=== PATIENT | male | born 1950 | race Caucasian/White ===

== ENCOUNTER 2020-03-15 09:16 | Outpatient (REF) | payer MEDICARE, OTHER, SELFPAY ==
--- NOTE | 2020-03-15 09:22 | XR_ITS ---
EXAMINATION: XR HIP, LEFT CLINICAL INFORMATION: Left hip COMPARISON: Fluoroscopic spot views left hip 01/21/2020, radiographs pelvis and left hip 01/20/2020. TECHNIQUE: AP view pelvis is performed along with AP and frog-lateral projections left hip. FINDINGS: There is been prior nailing left hip fracture. The hardware is intact. There is impaction at the prior fracture site. Fracture lines no longer clearly visible. There is bony exostosis at lateral femoral neck which may related to prior fracture fragment from the femoral neck fracture or from the adjacent to greater trochanter. There is no interval hip joint narrowing. The bony pelvis and right hip are stable. XR/XR hip LT min 2V IMPRESSION: 1. Prior nailing left hip fracture. Hardware intact. Fracture lines no longer clearly visible. 2. Foreshortening/impacted left femoral neck with exostosis lateral side femoral neck, possibly related to prior fracture fragment from the femoral neck or adjacent to greater trochanter.
== END 2020-03-15 09:17 | disposition home or self-care (01) ==
LOC: HO.XRAY 09:16
PROVIDERS: Visit Provider Physician Assistant
DX: S72.002D Fracture of unspecified part of neck of left femur, subsequent encounter for closed fracture with routine healing (principal)
CPT/HCPCS: 73502; 99212

== ENCOUNTER 2020-04-25 09:00 | Outpatient (REF) | payer MEDICARE, OTHER, SELFPAY ==
--- NOTE | 2020-04-25 09:01 | XR_ITS ---
EXAMINATION: AP PELVIS AND CROSSTABLE LATERAL LEFT HIP CLINICAL INFORMATION: Left hip pain. Status post fracture. COMPARISON: 03/15/2020 and 03/12/2020 TECHNIQUE: AP pelvis and cross table lateral view left hip. FINDINGS: There are again noted to be 3 pins across a subcapital fracture of the proximal right femur. No significant change in appearance identified. There is no evidence of acute fracture or diastases of the pelvis. Hip joint spaces appear maintained. No significant sacroiliac joint abnormality is noted. There is a region of sclerosis seen involving the medial aspect of the left iliac bone adjacent to the sacroiliac joint which was present on previous examination of 03/15/2020. XR/XR hip LT 1V IMPRESSION: Stable appearance status post pinning of left hip subcapital fracture. Sclerotic nondestructive lesion involving the left iliac bone.
--- NOTE | 2020-04-25 09:01 | XR_ITS ---
EXAMINATION: AP PELVIS AND CROSSTABLE LATERAL LEFT HIP CLINICAL INFORMATION: Left hip pain. Status post fracture. COMPARISON: 03/15/2020 and 03/12/2020 TECHNIQUE: AP pelvis and cross table lateral view left hip. FINDINGS: There are again noted to be 3 pins across a subcapital fracture of the proximal right femur. No significant change in appearance identified. There is no evidence of acute fracture or diastases of the pelvis. Hip joint spaces appear maintained. No significant sacroiliac joint abnormality is noted. There is a region of sclerosis seen involving the medial aspect of the left iliac bone adjacent to the sacroiliac joint which was present on previous examination of 03/15/2020. XR/XR pelvis 1-2V IMPRESSION: Stable appearance status post pinning of left hip subcapital fracture. Sclerotic nondestructive lesion involving the left iliac bone.
== END 2020-04-25 09:01 | disposition home or self-care (01) ==
LOC: HO.HOSX 09:00
PROVIDERS: Visit Provider Orthopaedic Surgery
DX: S72.002D Fracture of unspecified part of neck of left femur, subsequent encounter for closed fracture with routine healing (principal); Z98.890 Other specified postprocedural states
CPT/HCPCS: 72170; 73501; 73502; 99212

== ENCOUNTER → 2020-06-24 11:46 | Outpatient (BNVA) | payer MEDICARE, OTHER, SELFPAY | PROVIDERS: PCP Internal Medicine; Visit Provider Orthopaedic Surgery ==

== ENCOUNTER → 2020-06-27 12:40 | Outpatient (BNVA) | payer MEDICARE, OTHER, SELFPAY | PROVIDERS: PCP Internal Medicine; Visit Provider Physician Assistant | DX: Z01.818 Encounter for other preprocedural examination (principal); S72.002P Fracture of unspecified part of neck of left femur, subsequent encounter for closed fracture with malunion | CPT/HCPCS: 99212 ==

== ENCOUNTER 2020-07-02 06:05 | Inpatient (IN) | payer MEDICARE, OTHER, SELFPAY ==
--- NOTE | 2020-06-20 | ECG_ITS ---
Test Reason : PREOP Blood Pressure : / mmHG Vent. Rate : 085 BPM Atrial Rate : 085 BPM P-R Int : 152 ms QRS Dur : 090 ms QT Int : 372 ms P-R-T Axes : 070 015 022 degrees QTc Int : 442 ms Normal sinus rhythm Nonspecific ST abnormality Abnormal ECG When compared with ECG of 20-JAN-2020 19:35, Nonspecific T wave abnormality no longer evident in Lateral leads Referred By: Hayden Santoyo Electronically Signed By:Zhao Young
[2020-06-20 11:59] VITALS: BP 133/77; PULSE 106; RESP 20; O2SAT 97; BMI 28.7
--- NOTE | 2020-06-20 12:15 | P.CONAN_ITS ---
Documented by User: Melanie Trinh 07/01/20 10:14 HPI - Anesthesia Eval Consult details Narrative: 69yo M for L SHARAN and L hardware removal PMFSH Past Medical History Medical History High cholesterol Hypertension Functional capacity: uses cane/walker Family History Family history of problems with anesthesia: No Surgical History Surgical History History of tonsillectomy Status post hip surgery History of Problems with Anesthesia: No Social History Social History Are you a primary home care music therapist to a significant other at home: No Do you presently have visiting nurse or other home services: No Smoking Status: Current every day smoker Packs Per Day: 0.25 Cigarettes Per Day: 5.0 Years Smoked: 50 Smoked in Last 30 Days: Yes Patient Interested in Nicotine Replacement: No Patient Given Instructions on How to Stop Smoking: Yes Date Education Initiated: 06/20/20 Second Hand Smoke Exposure: No Use of substances other than those prescribed or required for medical reasons: No Have you been hit, kicked, punched, or otherwise hurt by someone within the past year? If so, by whom?: No Caodaism Healthcare Practices: jehovah's witness Advance Directives: No Advance Directives Information Provided: No Advance Directives on File: No Recently lost weight without trying: No Current occupational status: retired Current occupation: left handed Narrative Narrative: No recent illness. No CP/SOB. Amb with walker. Meds Allergies Allergy/AdvReac Type Severity Reaction Status Date / Time No Known Allergies Allergy Verified 07/02/20 06:49 [No Known Allergies*] Home Medications Medication Instructions Recorded Confirmed Type lisinopril 1 tab PO DAILY 06/19/20 06/24/20 History simvastatin 1 tab PO DAILY 06/19/20 06/24/20 History Exam Exam Date and Time: June 20, 2020 1215 Pertinent Lab Results Pertinent Lab Results: Lab Results 06/20/20 06/20/20 06/20/20 Range/Units 13:47 13:47 13:47 WBC 8.8 (4.8-10.8) X10*3/uL RBC 4.64 (4.60-5.80) X10*6/uL Hgb 13.7 L (14.0-18.0) g/dl Hct 42.8 (42-52) % MCV 92.2 (80-98) fL MCH 29.5 (27.0-33.0) pg MCHC 32.0 (31.0-36.0) g/dl RDW 14.2 (11.0-16.0) % Plt Count 309 (160-400) X10*3/uL MPV 8.9 L (9.4-12.4) fL Immature Gran % (Auto) 0.2 (0.0-0.4) % Neut % (Auto) 56.9 (45-73) % Lymph % (Auto) 31.1 (20-40) % [place] % (Auto) 8.9 (2-11) % Eos % (Auto) 2.6 (0-4) % Baso % (Auto) 0.3 (0-2) % Lymph # (Auto) 2.7 (1.2-4.9) X10*3/uL [place] # (Auto) 0.8 (0.1-1.2) X10*3/uL Eos # (Auto) 0.2 (0.0-0.4) X10*3/uL Baso # (Auto) 0.0 (0.0-0.2) X10*3/uL Abs Immat Gran (auto) 0.02 (0.00-0.03) X10*3/uL Absolute Neuts (auto) 5.0 (2.0-8.3) X10*3/uL Absolute Nucleated RBC 0.000 (0.0-0.012) X10*3/uL Nucleated RBC % (auto) 0.0 (0.0-0.2) /100WBC Sodium 141 (135-145) mmol/L Potassium 4.6 (3.3-5.1) mmol/l Chloride 104 (96-108) mmol/L Carbon Dioxide 27 (22-29) mmol/L Anion Gap 15 (12-20) BUN 13 (9-16) mg/dL Creatinine 0.81 (0.5-1.4) mg/dL Estim Creat Clear Calc 97.4 Estimated GFR > 60 Nasal Screen MRSA (PCR) (Negative) Nasal S. aureus Screen (Negative) Nasal MRSA/S.aureus Interp Blood Type O Positive Antibody Screen NEGATIVE 06/20/20 Range/Units Unknown WBC (4.8-10.8) X10*3/uL RBC (4.60-5.80) X10*6/uL Hgb (14.0-18.0) g/dl Hct (42-52) % MCV (80-98) fL MCH (27.0-33.0) pg MCHC (31.0-36.0) g/dl RDW (11.0-16.0) % Plt Count (160-400) X10*3/uL MPV (9.4-12.4) fL Immature Gran % (Auto) (0.0-0.4) % Neut % (Auto) (45-73) % Lymph % (Auto) (20-40) % [place] % (Auto) (2-11) % Eos % (Auto) (0-4) % Baso % (Auto) (0-2) % Lymph # (Auto) (1.2-4.9) X10*3/uL [place] # (Auto) (0.1-1.2) X10*3/uL Eos # (Auto) (0.0-0.4) X10*3/uL Baso # (Auto) (0.0-0.2) X10*3/uL Abs Immat Gran (auto) (0.00-0.03) X10*3/uL Absolute Neuts (auto) (2.0-8.3) X10*3/uL Absolute Nucleated RBC (0.0-0.012) X10*3/uL Nucleated RBC % (auto) (0.0-0.2) /100WBC Sodium (135-145) mmol/L Potassium (3.3-5.1) mmol/l Chloride (96-108) mmol/L Carbon Dioxide (22-29) mmol/L Anion Gap (12-20) BUN (9-16) mg/dL Creatinine (0.5-1.4) mg/dL Estim Creat Clear Calc Estimated GFR Nasal Screen MRSA (PCR) NEGATIVE (Negative) Nasal S. aureus Screen NEGATIVE (Negative) Nasal MRSA/S.aureus Interp SEE NOTE Blood Type Antibody Screen Narrative Narrative: EKG 06/20/20 Normal sinus rhythm Nonspecific ST abnormality Abnormal ECG When compared with ECG of 20-JAN-2020 19:35, Nonspecific T wave abnormality no longer evident in Lateral leads Airway TM Dist: >3cm Neck ROM: Full Loose/Missing/Broken Teeth: Yes (Broken R upper molar, ) Heart: Tachy, regular rate Lungs: CTAB Assessment and Plan Assessment Anesthesia Assessment: Anesthesia Plan Discussed, Smoking Cess. Discussed and PAT Visit Documented by User: Jordy Jaramillo MD 07/02/20 08:26 PMFSH Past Medical History Medical History High cholesterol Hypertension Surgical History Surgical History History of tonsillectomy Status post hip surgery Social History Social History Are you a primary home care music therapist to a significant other at home: No Do you presently have visiting nurse or other home services: No Smoking Status: Current every day smoker Packs Per Day: 0.25 Cigarettes Per Day: 5.0 Years Smoked: 50 Smoked in Last 30 Days: Yes Patient Interested in Nicotine Replacement: No Patient Given Instructions on How to Stop Smoking: Yes Date Education Initiated: 06/20/20 Second Hand Smoke Exposure: No Use of substances other than those prescribed or required for medical reasons: No Have you been hit, kicked, punched, or otherwise hurt by someone within the past year? If so, by whom?: No Caodaism Healthcare Practices: jehovah's witness Advance Directives: No Advance Directives Information Provided: No Advance Directives on File: No Recently lost weight without trying: No Current occupational status: retired Current occupation: left handed Meds Allergies Allergy/AdvReac Type Severity Reaction Status Date / Time No Known Allergies Allergy Verified 07/02/20 06:49 [No Known Allergies*] Home Medications Medication Instructions Recorded Confirmed Type lisinopril 1 tab PO DAILY 06/19/20 06/24/20 History simvastatin 1 tab PO DAILY 06/19/20 06/24/20 History Assessment and Plan Assessment Anesthesia Assessment: Anesthesia Plan Discussed and Chart Reviewed Final Anesthetic Review NPO: Yes ASA Class: III Final Preanesthetic Review: No Changes in Pt Med Stat, Meds/Allgs Chart Reviewed, Consent Obtained/Reviewed and Anes Risks/Benef Reviewed Patient Risk: Intermediate Procedure Risk: Intermediate Anesthetic Plan Anesthetic Plan: GA and Regional Block Disposition: Standard PACU
[2020-06-20 14:12] LABS: MRSA Nasal PCR NEGATIVE (Negative); SA Nasal PCR NEGATIVE (Negative)
[2020-06-20 14:18] LABS: MANUAL DIFF FLAG NO
[2020-06-20 14:34] LABS: Basophils Percent Auto 0.3 % (0-2); Eosinophils Absolute Auto 0.2 X10*3/uL (0.0-0.4); Eosinophils Percent Auto 2.6 % (0-4); Hematocrit 42.8 % (42-52); Hemoglobin 13.7 g/dl (14.0-18.0); Imm Gran Abs Auto 0.02 X10*3/uL (0.00-0.03); Imm Gran Pct Auto 0.2 % (0.0-0.4); Lymphocytes Absolute Auto 2.7 X10*3/uL (1.2-4.9); Lymphocytes Percent Auto 31.1 % (20-40); Mean Corpuscular Hemoglobin 29.5 pg (27.0-33.0); Mean Corpuscular Volume 92.2 fL (80-98); Mean Platelet Volume 8.9 fL (9.4-12.4); Monocytes Absolute Auto 0.8 X10*3/uL (0.1-1.2); Monocytes Percent Auto 8.9 % (2-11); Neutrophils Percent Auto 56.9 % (45-73); Platelet Count 309 X10*3/uL (160-400); Red Blood Count 4.64 X10*6/uL (4.60-5.80); Red Cell Distribution Width 14.2 % (11.0-16.0); White Blood Count 8.8 X10*3/uL (4.8-10.8)
[2020-06-20 14:55] LABS: Anion Gap 15 (12-20); Blood Urea Nitrogen 13 mg/dL (9-16); Carbon Dioxide 27 mmol/L (22-29); Chloride 104 mmol/L (96-108); Creatinine Clr Calc Pharmacy 97.4; Estimated Glomerular Filt Rate > 60; Potassium 4.6 mmol/l (3.3-5.1); Sodium 141 mmol/L (135-145)
--- NOTE | 2020-06-25 15:19 | HP_ITS ---
DATE OF SERVICE: 07/02/2020 HISTORY OF PRESENT ILLNESS: The patient is a 69-year-old male, who was seen in the office for preop evaluation and general medical checkup on 06/24/2020. The patient previously has been followed by Dr. Adan. The patient is scheduled for left total hip replacement on July 02 at [facility]. PAST MEDICAL HISTORY: Significant for fractured left hip with pinning last December, and A 8 years old, fractured right ankle in 2006, hypertension, elevated cholesterol, overweight. REVIEW OF SYSTEMS: No fevers or chills. No headaches or dizziness. No chest pains or shortness of breath. No peripheral edema. No palpitations. No coughing. No wheezing. No heartburn or abdominal pain. No dysuria. He does have to get up once at night. He has arthritis in the knees. No speech changes. No confusion. Sleep and appetite are normal. He does have seasonal allergies. No skin rashes. FAMILY HISTORY: Mother at 88. Father at 82. He has 2 brothers and 1 sister in good health. He has 1 son in good health. SOCIAL HISTORY: He is . He smokes 5 or 6 cigarettes a day. Has 1 to 2 alcoholic drinks every other day. He is retired. IMMUNIZATIONS: He was given a pneumonia vaccine; Pneumovax 23 today. He has had a previous flu shot at the pharmacy. PHYSICAL EXAMINATION: GENERAL: He is awake and alert, in no distress. VITAL SIGNS: Weight is 200 pounds (even), height is 5 feet 10 inches. Temperature 97.6, pulse 82, respirations 12, blood pressure 122/78. HEENT: Pupils are equal. TMs clear. Pharynx clear. NECK: Supple. No lymph nodes, bruits, or masses. HEART: Sounds S1 and S2. Regular rate and rhythm. LUNGS: Clear. ABDOMEN: Soft, nontender. Positive bowel sounds. No HSM. EXTREMITIES: No clubbing, cyanosis, or edema. 1+ pulses. He is presently using a walker because of the hip pain. ASSESSMENT AND PLAN: 1. Hypertension. Good control. 2. Elevated cholesterol. On simvastatin. 3. Tobacco abuse. Advised to quit. 4. Seasonal hay fever. [id number] medications as needed. 5. History of colon polyps. Up to date with colonoscopies. 6. He is preop for left total hip replacement for July 02. He is medically stable for the proposed procedure. Labs and EKG were reviewed. I will be available if there are any medical issues preoperatively. Tavares Gonzalez MD FC/MODL / [id number]
[2020-07-02] VITALS (18 sets, daily range): BP systolic 109–142; BP diastolic 68–88; PULSE 68–88; RESP 15–18; TEMP 36.1–37.1; O2SAT 94–100
--- NOTE | ~2020-07-02 | XR_ITS ---
EXAMINATION: XR PELVIS CLINICAL INFORMATION: Left total hip arthroplasty COMPARISON: 04/25/2020 TECHNIQUE: AP portable low set view of the pelvis. FINDINGS: There is a total left hip arthroplasty. The femoral head component articulates appropriately with the acetabular component. No periprosthetic lucency or fracture. Soft tissue gas noted. Mild degenerative change of the right hip with sclerosis. Phleboliths over the pelvis. XR/XR pelvis 1-2V IMPRESSION: Total left hip arthroplasty in typical positioning and alignment.
[2020-07-02 06:41] LABS: COVID-19 Test Negative (Negative)
[2020-07-02] MEDS: Lactated Ringers 1,000 ML 100 ML IVCONT (07:03)
[2020-07-02] MEDS: Gabapentin 600 MG TABLET PO (07:04)
[2020-07-02] MEDS: oxyCODONE HCl ER 10 MG TAB.ER.12H PO ×2 (07:04→21:09)
--- NOTE | 2020-07-02 07:23 | MHC.SHP ---
Pre-Procedural Eval Section A The patient is an INPATIENT: No Changes since office visit: Yes Patient answered all questions; No Cold of Flu in the past 2 weeks, No New Medical Problems and No Changes in Medication The History & Physical has been completed within 30 days and I have reviewed it.: Yes Section B Chief Complaint: Removal of hardware and left SHARAN Allergies: Allergies Allergy/AdvReac Type Severity Reaction Status Date / Time No Known Allergies Allergy Verified 07/02/20 06:49 [No Known Allergies*] Plan I have reviewed the history and physical and performed a pertinent physical examination on my patient. No changes have occurred unless specified.
--- NOTE | 2020-07-02 10:10 | P.BOP_ITS ---
Brief Operative Note Date of Service: 07/02/20 Pre-op diagnosis: left femoral neck malunion Post-op diagnosis: same Procedure: left SHARAN VERONIQUE left hip Implants: anna secure fit 10 with 36 + 5 ceramic head and 56 trident2 Surgeon: Jelani Diamond MD Anesthesia: GETA and regional Digital Marketing Officer: Hayden Santoyo Estimated blood loss (mL): 200 Tourniquet time (min): 0 IV fluids (mL): 1,200 Urine output (mL): 0 Pathology: other Condition: stable Disposition: PACU
[2020-07-02] MEDS: Ketorolac Tromethamine 15 MG/ML VIAL IVPUSH (10:46)
[2020-07-02] MEDS: HYDROmorphone HCl 0.5 MG/0.5 ML SYRINGE 0.25 MG IVPUSH (10:47)
[2020-07-02] MEDS: ceFAZolin Sodium/Dextrose,Iso 2 GM/50 ML PIGGYBACK IV (14:28)
[2020-07-02] MEDS: Dextrose 5 % and 0.45 % NaCl 1,000 ML 80 ML IVCONT (16:46)
[2020-07-02] MEDS: 0.9 % Sodium Chloride Flush 3 ML SYRINGE IVFLUSH (16:46)
--- NOTE | 2020-07-02 19:14 | OP_ITS ---
SURGEON: Jelani Diamond MD INDICATIONS: This is a 69-year-old gentleman, who sustained a femoral neck fracture, treated with percutaneous pinning that went on to malunion and was consented to undergo removal of hardware and total hip arthroplasty. PREOPERATIVE DIAGNOSIS: Left femoral neck malunion. POSTOPERATIVE DIAGNOSIS: PROCEDURE PERFORMED: Left hip arthroplasty and removal of hardware, left hip. ESTIMATED BLOOD LOSS: 200 mL. COMPLICATIONS: None. ANESTHESIA: General and regional. ASSISTANTS: EMILI Harrison. SPECIMENS: FLUIDS: 1200. IMPLANTS: Lizy Secur-Fit #10 with 36 plus 5 ceramic femoral head and a 56 Trident II acetabular cup. PROCEDURE IN DETAIL: The patient was brought to the operating room, placed in the right lateral decubitus position. All bony prominences were well padded and he was prepped and draped in standard sterile fashion. Time-out was called to identify proper site, proper procedure, proper surgeon. IV antibiotics per weight was administered. I began by making an incision over the prior incision, where the percutaneous screws had been placed. Blunt dissection was taken down to the tensor fascia. This was incised with a 15 blade and tissue was spread with a clamp down to the screw heads, which were removed easily without complication. I then irrigated, closed the fascia and the subcutaneous tissue and the skin with félix. I then turned my attention to the hip arthroplasty portion of the procedure. A curvilinear incision was made over the posterolateral aspect of the greater trochanter. Dissection was taken down to the tensor fascia, which was incised in line with the incision. A Charnley retractor was placed. Bursectomy was performed and the piriformis was identified, tagged, and a full-thickness piriformis capsulotomy was performed and the head was dislocated. The neck had gone to malunion with retroversion of the head. A neck cut was therefore made at anatomic neck and I used a rongeur to remove remaining pieces of bone. I then placed my anterior posterior acetabular retractors and performed a labrectomy, used Aquamantys and Bovie to remove the fovea. I then sequentially reamed up to a 55 and 56 cup was placed approximately 40 degrees of inclination and 25 degrees of anteversion. I then placed a 20-degree posterior lip liner and turned my attention to the femur. I used the NIMBOXX cutter to lateralize and then used a Secur-Fit line up to 10. I then broached up to a 10 and trialed. I was happy with the range of motion and stability, but more so . My final Secur-Fit stem was malleted in and had approximately 10 degrees of anteversion and again I re-trialed with a +5 head. I was happy with the range of motion and stability. Therefore, my final +5 head was placed. The hip was reduced and the capsule was closed with FiberWire. A 3-minute iodine soak with local TXA was applied and a layered closure with félix on the skin. X-rays revealed a symmetric leg lengths and hip arthroplasty hardware and expected postoperative position. The patient was then extubated, brought to the recovery room in stable condition. There were no known complications. MD ELBA Newell/SERGO / [id number]
[2020-07-02] MEDS: Celecoxib 200 MG CAPSULE PO (21:09)
--- NOTE | 2020-07-02 23:22 | PM.IMCN ---
History of Present Illness Data of Consult Service Date: 07/02/20 Requesting physician: Lalito Diamond Primary Care Provider: Fei Gonzalez MD [facility] Reason for consult: post-op medical management This is a 69-year-old male with past medical history of hyperlipidemia, hypertension, who was admitted by the surgical team for history of sustained a femoral neck fracture, treated with percutaneous pinning that went on to malunion and was consented to undergo removal of hardware and total hip arthroplasty. He is postop day 1, has no complaints of pain, reports no acute complaints. Has no chest pain, no shortness of breath, no headache or change in vision, no abdominal pain nausea or vomiting, no constipation. Reports that he moved his bowels this a.m. No urinary symptoms and no lower extremity edema. Medical team is consulted for postop medical management Patient hemodynamically stable at this time with no abnormal vitals Past medical history: High cholesterol, hypertension Past surgical history: Reports only the current total hip replacement Family history: Denies Social history: Comes from home, lives with his , independent, denies any tobacco alcohol or illicit drugs Review of Systems Review of Systems: Yes all other systems are reviewed and are negative [facility] Medical History (Updated 07/02/20 @ 23:26 by Mariola Jenkins MD) High cholesterol Hypertension Functional capacity: uses cane/walker Surgical History History of tonsillectomy Status post hip surgery Social History Are you a primary wound care specialist to a significant other at home: No Do you presently have visiting nurse or other home services: No Smoking Status: Current every day smoker Packs Per Day: 0.25 Cigarettes Per Day: 5.0 Years Smoked: 50 Smoked in Last 30 Days: Yes Patient Interested in Nicotine Replacement: No Patient Given Instructions on How to Stop Smoking: Yes Date Education Initiated: 06/20/20 Second Hand Smoke Exposure: No Use of substances other than those prescribed or required for medical reasons: No Currently Displaying Signs/Symptoms of Drug Intoxication Withdrawal: No Have you been hit, kicked, punched, or otherwise hurt by someone within the past year? If so, by whom?: No Protestant Healthcare Practices: taoism Advance Directives: No Advance Directives Information Provided: No Advance Directives on File: No Do you have thoughts of harming others: None Do you have a plan to hurt others: No Plan Recently lost weight without trying: No Current occupational status: retired Current occupation: left handed Meds Allergies Allergy/AdvReac Type Severity Reaction Status Date / Time No Known Allergies Allergy Verified 07/02/20 06:49 [No Known Allergies*] Active Medications: Current Medications Generic Name Dose Route Start Last Admin Trade Name Freq PRN Reason Stop Dose Admin Acetaminophen 650 mg 07/02/20 16:09 Acetaminophen 325 Mg Tablet PO Q6H PRN Pain, Mild (Pain Scale 1-3) Celecoxib 200 mg 07/02/20 21:00 07/02/20 21:09 Celecoxib 200 Mg Capsule PO 200 mg BID GREGG Administration Hydromorphone HCl 0.25 mg 07/02/20 16:09 Hydromorphone Hcl 0.5 Mg/0.5 Ml Syringe IVPUSH Q4H PRN Pain, Severe (Pain Scale 7-10) Dextrose/Sodium Chloride 1,000 mls @ 80 mls/hr 07/02/20 16:09 07/02/20 16:46 D51/2ns IVCONT 80 mls/hr .[id number] GREGG Administration Naloxone HCl 0.2 mg 07/02/20 16:09 Naloxone Hcl 0.4 Mg/Ml Vial IVPUSH Q2M PRN Excessive sedation or RR < 8 Ondansetron HCl 4 mg 07/02/20 16:09 Ondansetron Hcl 4 Mg/2 Ml Vial IVPUSH Q8H PRN Nausea and Vomiting Oxycodone HCl 10 mg 07/02/20 16:09 Oxycodone Hcl Immed Release 5 Mg Tablet PO Q4H PRN Pain, Moderate (Pain Scale 4-6 Oxycodone HCl 10 mg 07/02/20 21:00 07/02/20 21:09 Oxycodone Hcl Er 10 Mg Tab.Er.12h PO 10 mg BID GREGG Administration Senna 17.2 mg 07/02/20 16:09 Sennosides 8.6 Mg Tablet PO BEDTIME PRN Constipation Sodium Chloride 3 ml 07/02/20 16:09 07/02/20 21:55 0.9 % Sodium Chloride Flush 3 Ml Syringe IVFLUSH Not Given QSHIFT [facility] Home Medications Medication Instructions Recorded Confirmed Last Taken Type lisinopril 1 tab PO DAILY 06/19/20 06/24/20 Unknown History simvastatin 1 tab PO DAILY 06/19/20 06/24/20 Unknown History Physical Exam Vital Signs and Narrative: Vital Signs: Last Vital Signs Temp 98.7 F 07/02/20 19:21 Pulse 88 07/02/20 19:21 Resp 15 07/02/20 19:21 BP 127/78 07/02/20 19:21 Pulse Ox 98 07/02/20 19:21 Body Mass Index 28.7 Const: General: cooperative and no acute distress Orientation/consciousness: patient oriented x3 Eyes: General: appearance normal, both eyes and all related structures Resp: Effort & Inspection: normal respiratory effort and able to speak in complete sentences Cardio: Rate: regular rate Rhythm: regular rhythm GI: Palpation (GI): Soft to palpation Auscultation: normal bowel sounds Skin: General skin exam: no rashes or lesions noted Neuro: General: patient oriented x3 Cognition (Neuro): normal cognition Extrem: Other: Status post General: Yes normal to inspection and Yes no pedal edema Results Labs CBC and Chem 7: 06/20/20 13:47 06/20/20 13:47 Labs: Laboratory Results - last 24 hr 07/02/20 06:15 COVID-19 (SATINDER) Negative COVID-19 Clin Com See Note Assessment and Plan (1) Closed displaced fracture of left femoral neck with malunion: Status: Acute (2) Closed displaced fracture of left femoral neck with routine healing: Status: Acute (3) Hypertension: Status: Acute (4) High cholesterol: Status: Acute This is a 69-year-old male who sustained a femoral neck fracture status post percutaneous pinning but unfortunately went on to become malunion therefore was admitted today for total hip arthroplasty. # postop day 1 status post total left hip arthroplasty - pain well controlled - management per orthopedic team # hypertension - stable - continue lisinopril # hyperlipidemia - continue statin Thank you for this consult As patient is hemodynamically stable, with no acute medical issues, we will therefore sign off this consult If he would like this to see patient again please contact us
[2020-07-03 03:47] VITALS: BP 125/73; PULSE 100; RESP 16; TEMP 36.5; O2SAT 96
[2020-07-03] MEDS: Dextrose 5 % and 0.45 % NaCl 1,000 ML 80 ML IVCONT ×2 (03:52→16:23)
[2020-07-03 06:48] LABS: MANUAL DIFF FLAG NO
[2020-07-03 06:57] LABS: Basophils Percent Auto 0.3 % (0-2); Eosinophils Absolute Auto 0.2 X10*3/uL (0.0-0.4); Eosinophils Percent Auto 2.1 % (0-4); Hematocrit 31.2 % (42-52); Hemoglobin 10.2 g/dl (14.0-18.0); Imm Gran Abs Auto 0.04 X10*3/uL (0.00-0.03); Imm Gran Pct Auto 0.4 % (0.0-0.4); Lymphocytes Percent Auto 19.8 % (20-40); Mean Corpuscular HGB Conc 32.7 g/dl (31.0-36.0); Mean Corpuscular Hemoglobin 29.8 pg (27.0-33.0); Mean Corpuscular Volume 91.2 fL (80-98); Monocytes Absolute Auto 1.1 X10*3/uL (0.1-1.2); Monocytes Percent Auto 10.4 % (2-11); Neutrophils Absolute Auto 6.9 X10*3/uL (2.0-8.3); Platelet Count 235 X10*3/uL (160-400); Red Blood Count 3.42 X10*6/uL (4.60-5.80); White Blood Count 10.2 X10*3/uL (4.8-10.8)
[2020-07-03 07:18] LABS: Anion Gap 11 (12-20); Blood Urea Nitrogen 18 mg/dL (9-16); Calcium 7.6 mg/dL (8.4-10.2); Carbon Dioxide 26 mmol/L (22-29); Chloride 99 mmol/L (96-108); Creatinine Clr Calc Pharmacy 98.7; Estimated Glomerular Filt Rate > 60; Glucose Fasting 120 mg/dL (60-99); Potassium 4.2 mmol/L (3.3-5.1); Sodium 132 mmol/L (135-145)
--- NOTE | 2020-07-03 07:53 | PM.PNORT ---
Subjective Subjective Date of Service: 07/03/20 Principal diagnosis: LT SHARAN Interval history: POD 1 s/p removal percutaneous pinn with LT SHARAN No overnight events, resting in bed, has mild discomfort. Has not been out of bed yet. Denies sob, cp, palpitations. Physical Exam Vital Signs: Vital Signs: Last Vital Signs Temp 97.7 F 07/03/20 03:47 Pulse 100 07/03/20 03:47 Resp 16 07/03/20 03:47 BP 125/73 07/03/20 03:47 Pulse Ox 96 07/03/20 03:47 Body Mass Index 28.7 Const: General: cooperative, healthy appearing and no acute distress Resp: Effort & Inspection: normal respiratory effort and able to speak in complete sentences Cardio: Rate: regular rate Peripheral pulses: Peripheral pulses 2+ throughout GI: Palpation (GI): Soft to palpation Skin: General skin exam: no rashes or lesions noted Extrem: Other: Left hip bandage c/d/i. No erythema or edema, sensation intact. Progress Note: A&P Assessment and plan (1) History of total left hip replacement: Status: Acute Assessment and Plan: Continue pain mgmnt Begin asa for dvt ppx begin PT for LT SHARAN-posterior precautions Dispo planning-Pending PT eval, pain mgmnt Fall Risk Details Current Medications: Current Medications Generic Name Dose Route Start Last Admin Trade Name Freq PRN Reason Stop Dose Admin Acetaminophen 650 mg 07/02/20 16:09 Acetaminophen 325 Mg Tablet PO Q6H PRN Pain, Mild (Pain Scale 1-3) Celecoxib 200 mg 07/02/20 21:00 07/02/20 21:09 Celecoxib 200 Mg Capsule PO 200 mg BID GREGG Administration Hydromorphone HCl 0.25 mg 07/02/20 16:09 Hydromorphone Hcl 0.5 Mg/0.5 Ml Syringe IVPUSH Q4H PRN Pain, Severe (Pain Scale 7-10) Dextrose/Sodium Chloride 1,000 mls @ 80 mls/hr 07/02/20 16:09 07/03/20 03:52 D51/2ns IVCONT 80 mls/hr .[id number] GREGG Administration Naloxone HCl 0.2 mg 07/02/20 16:09 Naloxone Hcl 0.4 Mg/Ml Vial IVPUSH Q2M PRN Excessive sedation or RR < 8 Ondansetron HCl 4 mg 07/02/20 16:09 Ondansetron Hcl 4 Mg/2 Ml Vial IVPUSH Q8H PRN Nausea and Vomiting Oxycodone HCl 10 mg 07/02/20 16:09 Oxycodone Hcl Immed Release 5 Mg Tablet PO Q4H PRN Pain, Moderate (Pain Scale 4-6 Oxycodone HCl 10 mg 07/02/20 21:00 07/02/20 21:09 Oxycodone Hcl Er 10 Mg Tab.Er.12h PO 10 mg BID GREGG Administration Senna 17.2 mg 07/02/20 16:09 Sennosides 8.6 Mg Tablet PO BEDTIME PRN Constipation Sodium Chloride 3 ml 07/02/20 16:09 07/02/20 21:55 0.9 % Sodium Chloride Flush 3 Ml Syringe IVFLUSH Not Given QSHIFT GREGG Time Spent With Patient Time: Total time spent is greater than 50% in coordination of care (as documented) at patient's floor/unit and/or counseling patient: Time with patient: 15 - 24 minutes
[2020-07-03 08:00] VITALS: BP 115/58; PULSE 90; RESP 16; TEMP 36.3; O2SAT 98
[2020-07-03] MEDS: Celecoxib 200 MG CAPSULE PO ×2 (08:00→20:31)
[2020-07-03] MEDS: oxyCODONE HCl ER 10 MG TAB.ER.12H PO ×2 (08:00→20:32)
[2020-07-03] MEDS: Aspirin 325 MG TABLET PO ×2 (08:06→20:32)
[2020-07-03 11:35] VITALS: BP 103/63; PULSE 99; RESP 15; TEMP 36.8; O2SAT 98
--- NOTE | 2020-07-03 11:40 | MHC.CM.PN ---
met with pt who is to be dcd tomorrow pt recommends home pt referral to [facility] pt has own transportatopmn home
--- NOTE | 2020-07-03 14:37 | P.PNIM_ITS ---
Subjective Subjective Date of Service: 07/03/20 Interval History: seen in f/u for med consult Review of Systems little pain in the left hip, no fever Physical Exam Vital Signs: Vital Signs: Last Vital Signs Temp 98.3 F 07/03/20 11:35 Pulse 99 07/03/20 11:35 Resp 15 07/03/20 11:35 BP 103/63 07/03/20 11:35 Pulse Ox 98 07/03/20 11:35 Body Mass Index 28.7 Const: General: cooperative and no acute distress Yousif entation/consciousness: patient oriented x3 Eyes: General: appearance normal, both eyes and all related structures Resp: Effort & Inspection: normal respiratory effort and able to speak in complete sentences Cardio: Rate: regular rate Rhythm: regular rhythm GI: Palpation (GI): Soft to palpation Auscultation: normal bowel sounds Skin: General skin exam: no rashes or lesions noted Neuro: General: patient oriented x3 Cognition (Neuro): normal cognition Extrem: Other: Status post General: Yes normal to inspection and Yes no pedal edema Objective Data Current Medications Generic Name Dose Route Start Last Admin Trade Name Freq PRN Reason Stop Dose Admin Acetaminophen 650 mg 07/02/20 16:09 Acetaminophen 325 Mg Tablet PO Q6H PRN Pain, Mild (Pain Scale 1-3) Aspirin 325 mg 07/03/20 10:00 07/03/20 08:06 Aspirin 325 Mg Tablet PO 325 mg BID GREGG Administration Celecoxib 200 mg 07/02/20 21:00 07/03/20 08:00 Celecoxib 200 Mg Capsule PO 200 mg BID GRGEG Administration Hydromorphone HCl 0.25 mg 07/02/20 16:09 Hydromorphone Hcl 0.5 Mg/0.5 Ml Syringe IVPUSH Q4H PRN Pain, Severe (Pain Scale 7-10) Dextrose/Sodium Chloride 1,000 mls @ 80 mls/hr 07/02/20 16:09 07/03/20 03:52 D51/2ns IVCONT 80 mls/hr .[id number] GREGG Administration Naloxone HCl 0.2 mg 07/02/20 16:09 Naloxone Hcl 0.4 Mg/Ml Vial IVPUSH Q2M PRN Excessive sedation or RR < 8 Ondansetron HCl 4 mg 07/02/20 16:09 Ondansetron Hcl 4 Mg/2 Ml Vial IVPUSH Q8H PRN Nausea and Vomiting Oxycodone HCl 10 mg 07/02/20 16:09 Oxycodone Hcl Immed Release 5 Mg Tablet PO Q4H PRN Pain, Moderate (Pain Scale 4-6 Oxycodone HCl 10 mg 07/02/20 21:00 07/03/20 08:00 Oxycodone Hcl Er 10 Mg Tab.Er.12h PO 10 mg BID GRGEG Administration Senna 17.2 mg 07/02/20 16:09 Sennosides 8.6 Mg Tablet PO BEDTIME PRN Constipation Sodium Chloride 3 ml 07/02/20 16:09 07/03/20 08:00 0.9 % Sodium Chloride Flush 3 Ml Syringe IVFLUSH Not Given QSHIFT [facility] Labs CBC & Chem 7: 07/03/20 06:07 07/03/20 06:07 Assessment and Plan (1) Closed displaced fracture of left femoral neck with malunion: Status: Acute (2) Closed displaced fracture of left femoral neck with routine healing: Status: Acute (3) Hypertension: Status: Acute (4) High cholesterol: Status: Acute Assessment and Plan: This is a 69-year-old male who sustained a femoral neck fracture status post percutaneous pinning but unfortunately went on to become malunion therefore was admitted today for total hip arthroplasty. # postopstatus post total left hip arthroplasty - pain well controlled - management per orthopedic team PT/OT # hypertension - stable - continue lisinopril # hyperlipidemia - continue statin Monitor H/H
[2020-07-03 15:35] VITALS: BP 102/57; PULSE 91; RESP 18; TEMP 36.3; O2SAT 96
[2020-07-03 19:36] VITALS: BP 114/63; PULSE 90; RESP 18; TEMP 36.5; O2SAT 96
[2020-07-03 23:08] VITALS: BP 112/59; PULSE 95; RESP 20; TEMP 36.9; O2SAT 95
[2020-07-04] MEDS: 0.9 % Sodium Chloride Flush 3 ML SYRINGE IVFLUSH ×2 (00:33→08:17)
[2020-07-04 03:50] VITALS: BP 111/62; PULSE 95; RESP 20; TEMP 36.4; O2SAT 95
--- NOTE | 2020-07-04 06:38 | HO.POSTANES ---
Post Anesthesia Evaluation Post Anesthesia Evaluation Vital Signs: Vital Signs Temp Pulse Resp BP Pulse Ox 07/04/20 03:50 97.6 F 95 20 111/62 95 07/03/20 23:08 98.5 F 95 20 112/59 L 95 07/03/20 19:36 97.7 F 90 18 114/63 96 Patient seen the morning of 07/03/20 at 9am Anesthesia: Nerve Block and General Mental Status: Awake Pain Control: Satisfactory Nausea/Vomiting: None Hydration: Adequate Anesthesia-Related Issues: No Anes. Related Issues
[2020-07-04 07:10] LABS: Basophils Percent Auto 0.3 % (0-2); Eosinophils Absolute Auto 0.3 X10*3/uL (0.0-0.4); Eosinophils Percent Auto 3.4 % (0-4); Hematocrit 27.3 % (42-52); Imm Gran Abs Auto 0.04 X10*3/uL (0.00-0.03); Imm Gran Pct Auto 0.4 % (0.0-0.4); Lymphocytes Percent Auto 22.4 % (20-40); MANUAL DIFF FLAG NO; Mean Corpuscular Hemoglobin 29.6 pg (27.0-33.0); Mean Corpuscular Volume 89.8 fL (80-98); Mean Platelet Volume 8.9 fL (9.4-12.4); Monocytes Absolute Auto 0.9 X10*3/uL (0.1-1.2); Monocytes Percent Auto 9.5 % (2-11); Neutrophils Absolute Auto 5.8 X10*3/uL (2.0-8.3); Platelet Count 207 X10*3/uL (160-400); Red Blood Count 3.04 X10*6/uL (4.60-5.80); Red Cell Distribution Width 13.6 % (11.0-16.0); White Blood Count 9.1 X10*3/uL (4.8-10.8)
[2020-07-04 07:32] LABS: Anion Gap 10 (12-20); Blood Urea Nitrogen 13 mg/dL (9-16); Calcium 7.9 mg/dL (8.4-10.2); Carbon Dioxide 28 mmol/L (22-29); Chloride 100 mmol/L (96-108); Creatinine Clr Calc Pharmacy 111.2; Estimated Glomerular Filt Rate > 60; Glucose Fasting 108 mg/dL (60-99); Potassium 3.9 mmol/L (3.3-5.1); Sodium 134 mmol/L (135-145)
--- NOTE | 2020-07-04 07:32 | P.DS_ITS ---
DS: Providers Provider Date of Service: 07/04/20 Date of admission: 07/02/20 06:05 Primary care physician: Fei Gonzalez MD Consults: 07/02/20 16:09 Consult to Hospitalist Routine Consulting Provider: Hospitalist Reason For Exam: post op medical managment DS: Diagnosis Discharge Diagnosis (1) History of total left hip replacement: Status: Acute Problem details: Mr. Magallanes is a 69 yo male who was seen in our office for ongoing left hip pain s/p percutaneous pinning. He developed a non union which caused pain and interfered with therapy and ADLS; therefore, he elected to undergo removal perc. pinns with LT SHARAN . DS: Medications Discharge Medications Home Medications: Home Medications Medication Instructions Recorded Confirmed lisinopril 1 tab PO DAILY 06/19/20 06/24/20 simvastatin 1 tab PO DAILY 06/19/20 06/24/20 Previous Rx's Medication Instructions Recorded acetaminophen 650 mg PO Q6H PRN 30 Days #240 tab 07/04/20 aspirin 325 mg PO BID 30 Days #60 tab 07/04/20 celecoxib 200 mg PO BID 30 Days #60 cap 07/04/20 oxycodone 5 mg PO Q4H PRN 7 Days #42 tab 07/04/20 sennosides [Senna Lax] 17.2 mg PO BEDTIME PRN 30 Days #60 07/04/20 tab DS: Summary Hospital Course Hospital Course: The patient underwent a successful VERONIQUE with THAA, was transferred to PACU and then to the floor to recover. During their stay, their vitals were stable, afebrile at 97.6. Labs were unremarkable, H/H9.0/27.3. POD 1 he was started on ASA for DVT ppx, they also received PT and OT services twice a day. Prior to discharge, their dressing was change, incision clean dry and intact, new Aquacel dressing applied and the plan was to be discharged home with VNA services,. Time Spent with Patient Time attestation: Total time spent providing and/or coordinating discharge services: Discharge coordination time: Less than 30 minutes Physical Exam Vital Signs: Vital Signs: Last Vital Signs Temp 97.6 F 07/04/20 03:50 Pulse 95 07/04/20 03:50 Resp 20 07/04/20 03:50 BP 111/62 07/04/20 03:50 Pulse Ox 95 07/04/20 03:50 Body Mass Index 28.7 Const: General: cooperative, healthy appearing and no acute distress Resp: Effort & Inspection: normal respiratory effort and able to speak in complete sentences Cardio: Rate: regular rate Peripheral pulses: Peripheral pulses 2+ throughout GI: Palpation (GI): Soft to palpation Skin: General skin exam: no rashes or lesions noted Extrem: Other: Left hip incision c/d/i. No erythema, mild edema, sensation intact DS: Data Data Completed and Pending Pending studies at discharge: Pending at discharge 07/02/20 10:01 Surgical [PTH] Routine Labs on day of discharge: Laboratory Tests 06/20/20 06/20/20 06/20/20 13:47 13:47 13:47 WBC 8.8 RBC 4.64 Hgb 13.7 L Hct 42.8 MCV 92.2 MCH 29.5 MCHC 32.0 RDW 14.2 Plt Count 309 MPV 8.9 L Immature Gran % (Auto) 0.2 Neut % (Auto) 56.9 Lymph % (Auto) 31.1 [place] % (Auto) 8.9 Eos % (Auto) 2.6 Baso % (Auto) 0.3 Lymph # (Auto) 2.7 [place] # (Auto) 0.8 Eos # (Auto) 0.2 Baso # (Auto) 0.0 Abs Immat Gran (auto) 0.02 Absolute Neuts (auto) 5.0 Absolute Nucleated RBC 0.000 Nucleated RBC % (auto) 0.0 Sodium 141 Potassium 4.6 Chloride 104 Carbon Dioxide 27 Anion Gap 15 BUN 13 Creatinine 0.81 Estim Creat Clear Calc 97.4 Estimated GFR > 60 Fasting Glucose Calcium Nasal Screen MRSA (PCR) Nasal S. aureus Screen Nasal MRSA/S.aureus Interp COVID-19 ([facility]) COVID-19 Clin Com Blood Type O Positive Antibody Screen NEGATIVE 06/20/20 07/02/20 07/03/20 Unknown 06:15 06:07 WBC 10.2 RBC 3.42 L D Hgb 10.2 L D Hct 31.2 L D MCV 91.2 MCH 29.8 MCHC 32.7 RDW 14.0 Plt Count 235 MPV 9.0 L Immature Gran % (Auto) 0.4 Neut % (Auto) 67.0 Lymph % (Auto) 19.8 L [place] % (Auto) 10.4 Eos % (Auto) 2.1 Baso % (Auto) 0.3 Lymph # (Auto) 2.0 [place] # (Auto) 1.1 Eos # (Auto) 0.2 Baso # (Auto) 0.0 Abs Immat Gran (auto) 0.04 H Absolute Neuts (auto) 6.9 Absolute Nucleated RBC 0.000 Nucleated RBC % (auto) 0.0 Sodium Potassium Chloride Carbon Dioxide Anion Gap BUN Creatinine Estim Creat Clear Calc Estimated GFR Fasting Glucose Calcium Nasal Screen MRSA (PCR) NEGATIVE Nasal S. aureus Screen NEGATIVE Nasal MRSA/S.aureus Interp SEE NOTE COVID-19 (SATINDER) Negative COVID-19 Clin Com See Note Blood Type Antibody Screen 07/03/20 07/04/20 07/04/20 06:07 06:40 06:40 WBC 9.1 RBC 3.04 L Hgb 9.0 L Hct 27.3 L MCV 89.8 MCH 29.6 MCHC 33.0 RDW 13.6 Plt Count 207 MPV 8.9 L Immature Gran % (Auto) 0.4 Neut % (Auto) 64.0 Lymph % (Auto) 22.4 [place] % (Auto) 9.5 Eos % (Auto) 3.4 Baso % (Auto) 0.3 Lymph # (Auto) 2.0 [place] # (Auto) 0.9 Eos # (Auto) 0.3 Baso # (Auto) 0.0 Abs Immat Gran (auto) 0.04 H Absolute Neuts (auto) 5.8 Absolute Nucleated RBC 0.000 Nucleated RBC % (auto) 0.0 Sodium 132 L 134 L Potassium 4.2 3.9 Chloride 99 100 Carbon Dioxide 26 28 Anion Gap 11 L 10 L BUN 18 H 13 Creatinine 0.80 0.71 Estim Creat Clear Calc 98.7 111.2 Estimated GFR > 60 > 60 Fasting Glucose 120 H 108 H Calcium 7.6 L 7.9 L Nasal Screen MRSA (PCR) Nasal S. aureus Screen Nasal MRSA/S.aureus Interp COVID-19 ([facility]ER) COVID-19 Clin Com Blood Type Antibody Screen Discharge Plan Discharge Patient Disposition: Home Health Service Referrals: Jelani Diamond MD [Physician] - Hayden Santoyo PA-C [Physician Spreading Machine Operator] - (07/18/20 14:15) Discharge Medications: New acetaminophen 325 mg Tablet 650 mg PO Q6H PRN (Reason: Pain, Mild (Pain Scale 1-3)) 30 Days Qty: 240 RF: 0 aspirin 325 mg Tablet 325 mg PO BID 30 Days Qty: 60 RF: 0 celecoxib 200 mg Capsule 200 mg PO BID 30 Days Qty: 60 RF: 0 oxycodone 5 mg tablet 5 mg PO Q4H PRN (Reason: Pain, Moderate (Pain Scale 4-6) 7 Days Qty: 42 RF: 0 sennosides [Senna Lax] 8.6 mg Tablet 17.2 mg PO BEDTIME PRN (Reason: Constipation) 30 Days Qty: 60 RF: 0 Continued simvastatin 40 mg tablet 1 tab PO DAILY RF: 0 lisinopril 10 mg tablet 1 tab PO DAILY RF: 0 Discharge Orders: Discharge Order (Routine); Ordered 07/04/20 Ordered By: Hayden Santoyo Diet: regular diet Activity on Discharge: Use cane or walker Stand Alone Forms: Patient Portal Discharge page Activity Restrictions/Additional Instructions: * Physical Therapy for Total hip arthroplasty: posterior precautions, gait training, ROM, strength * Limit stair climbing * No showering, no tub bath-keep dressing clean, dry and intact * No driving x6 weeks * Continue Lovenox tabs once a day x 4 weeks * Follow up with [facility] in 2 weeks Care Plan Goals: Restore function of left hip Health Concerns: None Plan of Treatment: Physical Therapy Pain management DVT prophylaxis
[2020-07-04 08:00] VITALS: BP 125/66; PULSE 104; RESP 17; TEMP 36.4; O2SAT 96
[2020-07-04] MEDS: Celecoxib 200 MG CAPSULE PO (08:15)
[2020-07-04] MEDS: Aspirin 325 MG TABLET PO (08:16)
[2020-07-04] MEDS: oxyCODONE HCl ER 10 MG TAB.ER.12H PO (08:16)
--- NOTE | 2020-07-04 08:44 | MHC.CM.PN ---
PATIENT IS DISCHARGED HOME WITH [facility]. RN AWARE OF PLAN.
--- NOTE | 2020-07-04 08:47 | PM.DS ---
DS: Providers Provider Date of Service: 07/04/20 Date of admission: 07/02/20 06:05 Primary care physician: Fei Gonzalez MD Consults: 07/02/20 16:09 Consult to Hospitalist Routine Consulting Provider: Hospitalist Reason For Exam: post op medical managment DS: Diagnosis Discharge Diagnosis (1) History of total left hip replacement: Status: Acute Problem details: Mr. Magallanes is a 69 yo male who was seen in our office for ongoing left hip pain s/p percutaneous pinning. He developed a non union which caused pain and interfered with therapy and ADLS; therefore, he elected to undergo removal perc. pinns with LT SHARAN . DS: Medications Discharge Medications Home Medications: Home Medications Medication Instructions Recorded Confirmed lisinopril 1 tab PO DAILY 06/19/20 06/24/20 simvastatin 1 tab PO DAILY 06/19/20 06/24/20 Previous Rx's Medication Instructions Recorded acetaminophen 650 mg PO Q6H PRN 30 Days #240 tab 07/04/20 aspirin 325 mg PO BID 30 Days #60 tab 07/04/20 celecoxib 200 mg PO BID 30 Days #60 cap 07/04/20 oxycodone 5 mg PO Q4H PRN 7 Days #42 tab 07/04/20 sennosides [Senna Lax] 17.2 mg PO BEDTIME PRN 30 Days #60 07/04/20 tab DS: Summary Hospital Course Hospital Course: The patient underwent a successful VERONIQUE with THAA, was transferred to PACU and then to the floor to recover. During their stay, their vitals were stable, afebrile at 97.6. Labs were unremarkable, H/H9.0/27.3. POD 1 he was started on ASA for DVT ppx, they also received PT and OT services twice a day. Prior to discharge, their dressing was change, incision clean dry and intact, new Aquacel dressing applied and the plan was to be discharged home with VNA services,. Time Spent with Patient Time attestation: Total time spent providing and/or coordinating discharge services: Discharge coordination time: Less than 30 minutes Physical Exam Vital Signs: Vital Signs: Last Vital Signs Temp 97.5 F 07/04/20 08:00 Pulse 104 H 07/04/20 08:00 Resp 17 07/04/20 08:00 BP 125/66 07/04/20 08:00 Pulse Ox 96 07/04/20 08:00 Body Mass Index 28.7 Const: General: cooperative, healthy appearing and no acute distress Resp: Effort & Inspection: normal respiratory effort and able to speak in complete sentences Cardio: Rate: regular rate Peripheral pulses: Peripheral pulses 2+ throughout GI: Palpation (GI): Soft to palpation Skin: General skin exam: no rashes or lesions noted Extrem: Other: left hip incision clean dry and intact, no erythema, mild edema, sensation intact DS: Data Data Completed and Pending Pending studies at discharge: Pending at discharge 07/02/20 10:01 Surgical [PTH] Routine Labs on day of discharge: Laboratory Tests 06/20/20 06/20/20 06/20/20 13:47 13:47 13:47 WBC 8.8 RBC 4.64 Hgb 13.7 L Hct 42.8 MCV 92.2 MCH 29.5 MCHC 32.0 RDW 14.2 Plt Count 309 MPV 8.9 L Immature Gran % (Auto) 0.2 Neut % (Auto) 56.9 Lymph % (Auto) 31.1 Crook % (Auto) 8.9 Eos % (Auto) 2.6 Baso % (Auto) 0.3 Lymph # (Auto) 2.7 Crook # (Auto) 0.8 Eos # (Auto) 0.2 Baso # (Auto) 0.0 Abs Immat Gran (auto) 0.02 Absolute Neuts (auto) 5.0 Absolute Nucleated RBC 0.000 Nucleated RBC % (auto) 0.0 Sodium 141 Potassium 4.6 Chloride 104 Carbon Dioxide 27 Anion Gap 15 BUN 13 Creatinine 0.81 Estim Creat Clear Calc 97.4 Estimated GFR > 60 Fasting Glucose Calcium Nasal Screen MRSA (PCR) Nasal S. aureus Screen Nasal MRSA/S.aureus Interp COVID-19 (SATINDER) COVID-19 Clin Com Blood Type O Positive Antibody Screen NEGATIVE 06/20/20 07/02/20 07/03/20 Unknown 06:15 06:07 WBC 10.2 RBC 3.42 L D Hgb 10.2 L D Hct 31.2 L D MCV 91.2 MCH 29.8 MCHC 32.7 RDW 14.0 Plt Count 235 MPV 9.0 L Immature Gran % (Auto) 0.4 Neut % (Auto) 67.0 Lymph % (Auto) 19.8 L Crook % (Auto) 10.4 Eos % (Auto) 2.1 Baso % (Auto) 0.3 Lymph # (Auto) 2.0 Crook # (Auto) 1.1 Eos # (Auto) 0.2 Baso # (Auto) 0.0 Abs Immat Gran (auto) 0.04 H Absolute Neuts (auto) 6.9 Absolute Nucleated RBC 0.000 Nucleated RBC % (auto) 0.0 Sodium Potassium Chloride Carbon Dioxide Anion Gap BUN Creatinine Estim Creat Clear Calc Estimated GFR Fasting Glucose Calcium Nasal Screen MRSA (PCR) NEGATIVE Nasal S. aureus Screen NEGATIVE Nasal MRSA/S.aureus Interp SEE NOTE COVID-19 (SATINDER) Negative COVID-19 Clin Com See Note Blood Type Antibody Screen 07/03/20 07/04/20 07/04/20 06:07 06:40 06:40 WBC 9.1 RBC 3.04 L Hgb 9.0 L Hct 27.3 L MCV 89.8 MCH 29.6 MCHC 33.0 RDW 13.6 Plt Count 207 MPV 8.9 L Immature Gran % (Auto) 0.4 Neut % (Auto) 64.0 Lymph % (Auto) 22.4 Crook % (Auto) 9.5 Eos % (Auto) 3.4 Baso % (Auto) 0.3 Lymph # (Auto) 2.0 Crook # (Auto) 0.9 Eos # (Auto) 0.3 Baso # (Auto) 0.0 Abs Immat Gran (auto) 0.04 H Absolute Neuts (auto) 5.8 Absolute Nucleated RBC 0.000 Nucleated RBC % (auto) 0.0 Sodium 132 L 134 L Potassium 4.2 3.9 Chloride 99 100 Carbon Dioxide 26 28 Anion Gap 11 L 10 L BUN 18 H 13 Creatinine 0.80 0.71 Estim Creat Clear Calc 98.7 111.2 Estimated GFR > 60 > 60 Fasting Glucose 120 H 108 H Calcium 7.6 L 7.9 L Nasal Screen MRSA (PCR) Nasal S. aureus Screen Nasal MRSA/S.aureus Interp COVID-19 ([facility]ATINDER) COVID-19 Clin Com Blood Type Antibody Screen Discharge Plan Discharge Patient Disposition: Home Health Service Referrals: Jelani Diamond MD [Physician] - Hayden Santoyo PA-C [Physician Assembler [employer]] - (07/18/20 14:15) Discharge Medications: New acetaminophen 325 mg Tablet 650 mg PO Q6H PRN (Reason: Pain, Mild (Pain Scale 1-3)) 30 Days Qty: 240 RF: 0 aspirin 325 mg Tablet 325 mg PO BID 30 Days Qty: 60 RF: 0 celecoxib 200 mg Capsule 200 mg PO BID 30 Days Qty: 60 RF: 0 oxycodone 5 mg tablet 5 mg PO Q4H PRN (Reason: Pain, Moderate (Pain Scale 4-6) 7 Days Qty: 42 RF: 0 sennosides [Senna Lax] 8.6 mg Tablet 17.2 mg PO BEDTIME PRN (Reason: Constipation) 30 Days Qty: 60 RF: 0 Continued simvastatin 40 mg tablet 1 tab PO DAILY RF: 0 lisinopril 10 mg tablet 1 tab PO DAILY RF: 0 Discharge Orders: Discharge Order (Routine); Ordered 07/04/20 Ordered By: Hayden Santoyo Diet: regular diet Activity on Discharge: Use cane or walker Stand Alone Forms: Patient Portal Discharge page Activity Restrictions/Additional Instructions: Physical Therapy for Total hip arthroplasty: posterior precautions, gait training, ROM, strength Limit stair climbing No showering, no tub bath-keep dressing clean, dry and intact No driving x6 weeks Continue Lovenox tabs once a day x 4 weeks Follow up with [facility] in 2 weeks Care Plan Goals: Restore function of left hip Health Concerns: None Plan of Treatment: Physical Therapy Pain management DVT prophylaxis
--- NOTE | 2020-07-04 08:48 | W.MHC.F2F ---
Service Date Service Date: 07/04/20 Reasons for Services Reason for physical therapy: home safety and mobility, therapeutic exercises, restore joint function, gait/transfer training, ADL training and energy conservation Reason for occupational therapy: home safety and mobility, therapeutic exercises, restore joint function, gait/transfer training, assess need for DME, ADL training and energy conservation Overseeing Care: Jelani Diamond Homebound: Leaving the home is medically contraindicated at this time without the asist of a device and/or another person due th the listed conditions above and below. Reason homebound: unsteady gait / fall risk, leg weakness, pain with ambulation, poor balance / fall risk and unable to drive Homebound supporting statement: Pt. is considered home bound due to recent surgery. Unable to drive, poor balance, poor gait mechanics. Certification: Based on the above findings, I certify that this patient is confined to the home and needs intermittent [facility] care, physical therapy and/or speech therapy, or continues to need occupational therapy. The patient is under my care, and I have initiated the establishment of the plan of care. The patient will be followed by a physician who will periodically review the plan of care.
--- NOTE | 2020-07-04 09:38 | HO.PM.IMPN ---
Subjective Subjective Date of Service: 07/04/20 Interval History: seen in f/u for med consult. Has no complaint, was walkig with PT and doing well. Physical Exam Vital Signs: Vital Signs: Last Vital Signs Temp 97.5 F 07/04/20 08:00 Pulse 104 H 07/04/20 08:00 Resp 17 07/04/20 08:00 BP 125/66 07/04/20 08:00 Pulse Ox 96 07/04/20 08:00 Body Mass Index 28.7 Const: General: cooperative and no acute distress Orientation/consciousness: patient oriented x3 Eyes: General: appearance normal, both eyes and all related structures Resp: Effort & Inspection: normal respiratory effort and able to speak in complete sentences Cardio: Rate: regular rate Rhythm: regular rhythm GI: Palpation (GI): Soft to palpation Auscultation: normal bowel sounds Skin: General skin exam: no rashes or lesions noted Neuro: General: patient oriented x3 Cognition (Neuro): normal cognition Extrem: General: Yes normal to inspection and Yes no pedal edema Objective Data Current Medications Generic Name Dose Route Start Last Admin Trade Name Freq PRN Reason Stop Dose Admin Acetaminophen 650 mg 07/02/20 16:09 Acetaminophen 325 Mg Tablet PO Q6H PRN Pain, Mild (Pain Scale 1-3) Aspirin 325 mg 07/03/20 10:00 07/04/20 08:16 Aspirin 325 Mg Tablet PO 325 mg BID GREGG Administration Celecoxib 200 mg 07/02/20 21:00 07/04/20 08:15 Celecoxib 200 Mg Capsule PO 200 mg BID GREGG Administration Hydromorphone HCl 0.25 mg 07/02/20 16:09 Hydromorphone Hcl 0.5 Mg/0.5 Ml Syringe IVPUSH Q4H PRN Pain, Severe (Pain Scale 7-10) Dextrose/Sodium Chloride 1,000 mls @ 80 mls/hr 07/02/20 16:09 07/04/20 05:12 D51/2ns IVCONT Not Given .[id number] GREGG Naloxone HCl 0.2 mg 07/02/20 16:09 Naloxone Hcl 0.4 Mg/Ml Vial IVPUSH Q2M PRN Excessive sedation or RR < 8 Ondansetron HCl 4 mg 07/02/20 16:09 Ondansetron Hcl 4 Mg/2 Ml Vial IVPUSH Q8H PRN Nausea and Vomiting Oxycodone HCl 10 mg 07/02/20 16:09 Oxycodone Hcl Immed Release 5 Mg Tablet PO Q4H PRN Pain, Moderate (Pain Scale 4-6 Oxycodone HCl 10 mg 07/02/20 21:00 07/04/20 08:16 Oxycodone Hcl Er 10 Mg Tab.Er.12h PO 10 mg BID GREGG Administration Senna 17.2 mg 07/02/20 16:09 Sennosides 8.6 Mg Tablet PO BEDTIME PRN Constipation Sodium Chloride 3 ml 07/02/20 16:09 07/04/20 08:17 0.9 % Sodium Chloride Flush 3 Ml Syringe IVFLUSH 3 ml QSHIFT GREGG Administration Labs CBC & Chem 7: 07/04/20 06:40 07/04/20 06:40 Assessment and Plan (1) Closed displaced fracture of left femoral neck with malunion: Status: Acute (2) Closed displaced fracture of left femoral neck with routine healing: Status: Acute (3) Hypertension: Status: Acute (4) High cholesterol: Status: Acute Assessment and Plan: 69-year-old male who sustained a femoral neck fracture status post percutaneous pinning but unfortunately went on to become malunion therefore was admitted today for total hip arthroplasty. # post post op left hip arthroplasty, doing well - pain well controlled - management per orthopedic team PT/OT # hypertension - stable - continue lisinopril # hyperlipidemia - continue statin Anemia, acute blood loss Monitor H/H, may need RBC if drops further
== END 2020-07-04 11:15 | disposition home health service (06) | DRG 522 ==
LOC: HO.SSSA 06:15 → HO.S3 14:10
PROVIDERS: Physician Assistant; Admitting Provider Orthopaedic Surgery; PCP Internal Medicine; Visit Provider Orthopaedic Surgery
PROC: 0SRB0JA Replacement of Left Hip Joint with Synthetic Substitute, Uncemented, Open Approach (ICD-10-PCS; CPT 27130; principal; 2020-07-02 07:30)
PROC: 0SRB0JA Replacement of Left Hip Joint with Synthetic Substitute, Uncemented, Open Approach (ICD-10-PCS; 2020-07-02 07:30)
DX: S72.002P Fracture of unspecified part of neck of left femur, subsequent encounter for closed fracture with malunion (principal); E78.00 Pure hypercholesterolemia, unspecified; F17.210 Nicotine dependence, cigarettes, uncomplicated; X58.XXXD Exposure to other specified factors, subsequent encounter; Z71.6 Tobacco abuse counseling; I10 Essential (primary) hypertension; Z20.822 Contact with and (suspected) exposure to COVID-19; Z79.899 Other long term (current) drug therapy
CPT/HCPCS: 36415; 72170; 80048; 80051; 82565; 84520; 85025; 86850; 86900; 86901; 87635; 87640; 87641; 88304; 88311; 93005; 97110; 97116; 97162; 97165; 97535; C1776; J0131; J0690; J1100; J1170; J1885; J2250; J2405; J3010

== ENCOUNTER → 2020-07-18 14:09 | Outpatient (BNVA) | payer MEDICARE, OTHER, SELFPAY | PROVIDERS: Visit Provider Physician Assistant | DX: Z96.642 Presence of left artificial hip joint (principal) | CPT/HCPCS: 99212 ==

== ENCOUNTER → 2020-08-15 14:30 | Outpatient (BNVA) | payer MEDICARE, OTHER, SELFPAY | PROVIDERS: PCP Internal Medicine; Visit Provider Orthopaedic Surgery | DX: Z47.1 Aftercare following joint replacement surgery (principal); Z96.642 Presence of left artificial hip joint | CPT/HCPCS: 99212 ==

== ENCOUNTER 2020-10-03 08:43 | Outpatient (REF) | payer MEDICARE, OTHER, SELFPAY ==
--- NOTE | ~2020-10-03 | XR_ITS ---
EXAMINATION: XR PELVIS XR HIP, LEFT CLINICAL INFORMATION: Z96.642 - Presence of left artificial hip joint COMPARISON: Radiographs pelvis 07/02/2020, 04/25/2020 TECHNIQUE: AP view pelvis is performed along with AP and lateral views left hip. FINDINGS: There is been prior left hip replacement. The hardware is intact. There is no fracture, dislocation, destructive process, or osteolysis around the prosthesis. There is some minor spurring superior and inferior lateral greater trochanter. There is no acute bony abnormality in the pelvis or right hip from prior studies. Again, there is a 1.8 cm sclerotic lesion overlying the medial left iliac wing. Mild osteitis pubis is present. There are calcified phleboliths in the pelvis. Bowel gas unremarkable. XR/XR pelvis 1-2V IMPRESSION: Left hip replacement. Hardware intact. No destructive process or osteolysis.
--- NOTE | ~2020-10-03 | XR_ITS ---
EXAMINATION: XR PELVIS XR HIP, LEFT CLINICAL INFORMATION: Z96.642 - Presence of left artificial hip joint COMPARISON: Radiographs pelvis 07/02/2020, 04/25/2020 TECHNIQUE: AP view pelvis is performed along with AP and lateral views left hip. FINDINGS: There is been prior left hip replacement. The hardware is intact. There is no fracture, dislocation, destructive process, or osteolysis around the prosthesis. There is some minor spurring superior and inferior lateral greater trochanter. There is no acute bony abnormality in the pelvis or right hip from prior studies. Again, there is a 1.8 cm sclerotic lesion overlying the medial left iliac wing. Mild osteitis pubis is present. There are calcified phleboliths in the pelvis. Bowel gas unremarkable. XR/XR hip LT 1V IMPRESSION: Left hip replacement. Hardware intact. No destructive process or osteolysis.
== END 2020-10-03 08:44 | disposition home or self-care (01) ==
LOC: HO.HOSX 08:43
PROVIDERS: Visit Provider Orthopaedic Surgery
DX: M25.552 Pain in left hip (principal); F17.210 Nicotine dependence, cigarettes, uncomplicated; Z96.642 Presence of left artificial hip joint
CPT/HCPCS: 72170; 73501; 99212

== ENCOUNTER 2020-10-08 11:00 | Outpatient (RCR) | payer MEDICARE, OTHER, SELFPAY ==
--- NOTE | 2020-07-26 12:57 | MHC.PT.EP ---
[facility] [place] Office [place] Office [place] Office [address] Narciso Zaidi [address] [phone] F: [phone] F: [phone] F: [phone] F: [phone] Physical Therapy Plan of Care Date of Evaluation: 07/26/20 Date of Surgery: 07/02/20 Diagnosis: (L) SHARAN Assessment: Pt is a 69 y/o M following (L) posterior SHARAN 07/02/20. PMH is significant for traumatic fracture with malunion ORIF 01/22/20 resulting in current SHARAN. Pt presents today with limited ROM, strength deficits, muscle tightness, and postural/gait abnormalities associated with SHARAN resulting in pain and difficulty with stairs, walking c RW, prolonged standing, and don/doff shoes. Pt will benefit from skilled PT 2x/week for 5 weeks to improve ambulation, strength, reduce muscle tightness, and improve ROM to aid in walking, performing mortgage loan officer originator, and assist in ADLs. Frequency and Duration: The patient will be seen 2x/week 5 weeks Short Term Goals: 3 Weeks: 1)Pt will be able to perform SLR with no quad lag.. 2)Pt will be able to ambulate >30 minutes without increase of pain. Alf Goals: 5 Weeks: 1) Pt hip strength will be >4/5 to aid in ambulation. 2) Pt will be able to climb stairs reciprocally to aid in reaching bedroom. 3) Pt will be able to ambulate with single point cane >30 minutes without increase of pain. Treatment Plan: Modalities to reduce pain, spasms and effusion. Manual therapy to restore motion and function. Therapeutic exercise to improve strength and flexibility. Neuromuscular re-education for posture and balance. Therapeutic activities to return to functional activities of daily living. Electronically signed by: Tammy Mejia PT Please sign and return to therapist. Thank you for your referral.
--- NOTE | 2020-10-11 09:05 | MHC.PT.DC ---
[facility] [place] Office [place] Office [place] Office [address] Narciso Zaidi [address] [phone] F: [phone] F: [phone] F: [phone] F: [phone] Physical Therapy Discharge Report Diagnosis: (L) SHARAN Date of Surgery: 07/02/20 Date of Evaluation: 07/26/20 Date of Discharge: 10/11/20 Treatments to Date: 16 Cancellations to Date: 0 No Shows to Date: 0 Discharge Status: Achieved Goals Improved Function Independent with HEP Discharge Summary: Pt d/c at this time. Per last note: To follow up with MD in 6 weeks. Is transitioning to walking program at home. Has all necessary printouts and bands. Pt progressed well over the course of skilled PT making progress on impairments and functional limitations resulting in an improved quality of life. Pt is I with HEP and appropriate to d/c to HEP at this time. Electronically signed by: Monica Mejia PT Please sign and return to therapist. Thank you for your referral.
== END 2020-10-11 09:06 | disposition home or self-care (01) ==
LOC: HO.PTCHIC 11:00
PROVIDERS: PCP Internal Medicine; Visit Provider Physician Assistant
DX: Z96.642 Presence of left artificial hip joint (principal); Z98.890 Other specified postprocedural states
CPT/HCPCS: 97110; 97112; 97116; 97162; 97530

== ENCOUNTER → 2020-11-14 14:23 | Outpatient (BNVA) | payer MEDICARE, OTHER, SELFPAY | PROVIDERS: Visit Provider Orthopaedic Surgery | DX: Z47.1 Aftercare following joint replacement surgery (principal); Z96.642 Presence of left artificial hip joint | CPT/HCPCS: 99212 ==

== ENCOUNTER → 2021-10-01 13:30 | Outpatient (RCR) | payer MEDICARE, OTHER, SELFPAY ==
--- NOTE | 2020-03-27 13:46 | MHC.PT.EP ---
[facility] [place] Office [place] [facility] [place] Office [address] Narciso Zaidi [address] [phone] F: [phone] F: [phone] F: [phone] F: [phone] Physical Therapy Plan of Care Date of Evaluation: 03/27/20 Date of Surgery: 01/21/20 Diagnosis: Percutaneous pinning of L femur Assessment: 69 year old male referred for fracture of unspecified part of neck of L femur . Pt is 8.5 weeks s/p percutaneous pinning of L femur. Pt had the fracture secondary to a fall. Post surgery pt was discharged to home PT. His last home PT visit was 3 weeks back. Examination reveals 0/10 pain at rest and 7/10 pain with walking, standing, rolling, twisting and stairs, decreased ROM of L hip, decreased muscle strength, decreased flexibility of hip musculature, altered balance, posture and gait. He lives with his who has been helping him with BADLS and performing all IADLS. Pt is retired. He is a good candidate for PT based on age, goals, physical impairment and functional limitations. He would benefit from PT to decrease pain, improve ROM, increase muscle strength, postural correction, gait training and functional training. Frequency and Duration: The patient will be seen 2/week for 8 weeks Short Term Goals: 1. Pt will have 50% decrease in pain in 2 weeks. 2. Pt will be able to walk with a cane in 3 weeks. 3. Pt will be able to move his hip joint without pain in 4 weeks. Fdc Goals: 1. Pt will be able independent with all ADLS in 6 weeks. 2. Pt will return to PLOF in 8 weeks. Treatment Plan: Modalities to reduce pain, spasms and effusion. Manual therapy to restore motion and function. Therapeutic exercise to improve strength and flexibility. Neuromuscular re-education for posture and balance. Therapeutic activities to return to functional activities of daily living. Please sign and return to therapist. Thank you for your referral.
--- NOTE | 2021-10-01 13:30 | MHC.PT.DC ---
[facility] [place] Office [place] Office [place] Office [address] Narciso Zaidi [address] [phone] F: [phone] F: [phone] F: [phone] F: [phone] Physical Therapy Discharge Report Diagnosis: Percutaneous pinning of L femur Date of Surgery: 01/21/20 Date of Evaluation: 03/27/20 Date of Discharge: 06/19/20 Treatments to Date: 19 Cancellations to Date: 0 No Shows to Date: 0 Discharge Status: Improved Function Independent with HEP Discharge Summary: He progressed well and is in a good position to continue with HEP. Updated his HEP and will return after surgery. Electronically signed by: Parmjit Salgado PT Please sign and return to therapist. Thank you for your referral.
== END | disposition home or self-care (01) ==
LOC: HO.PT 03-27 11:42 → HO.PTCHIC 04-01 14:00
PROVIDERS: Visit Provider Orthopaedic Surgery
DX: S72.002D Fracture of unspecified part of neck of left femur, subsequent encounter for closed fracture with routine healing (principal)
CPT/HCPCS: 97110; 97112; 97116; 97140; 97161; 97530

== ENCOUNTER 2022-03-11 10:06 | Outpatient (REF) | payer MEDICARE, OTHER, SELFPAY ==
[2022-03-11 10:45] LABS: MANUAL DIFF FLAG NO
[2022-03-11 11:54] LABS: Basophils Percent Auto 0.5 % (0-2); Eosinophils Absolute Auto 0.2 X10*3/uL (0.0-0.4); Eosinophils Percent Auto 2.1 % (0-4); Hematocrit 45.6 % (42.0-52.0); Hemoglobin 14.9 g/dl (14.0-18.0); Imm Gran Abs Auto 0.02 X10*3/uL (0.00-0.03); Imm Gran Pct Auto 0.2 % (0.0-0.4); Lymphocytes Absolute Auto 2.3 X10*3/uL (1.2-4.9); Lymphocytes Percent Auto 26.7 % (20-40); Mean Corpuscular HGB Conc 32.7 g/dl (31.0-36.0); Mean Corpuscular Hemoglobin 29.9 pg (27.0-33.0); Mean Corpuscular Volume 91.6 fL (80.0-98.0); Monocytes Absolute Auto 0.7 X10*3/uL (0.1-1.2); Monocytes Percent Auto 8.3 % (2-11); Neutrophils Absolute Auto 5.4 x10*3/uL (2.0-8.3); Neutrophils Percent Auto 62.2 % (45-73); Platelet Count 284 X10*3/uL (160-400); Red Blood Count 4.98 X10*6/uL (4.60-5.80); Red Cell Distribution Width 14.1 % (11.0-16.0); White Blood Count 8.6 X10*3/uL (4.8-10.8)
[2022-03-11 12:29] LABS: Alanine Aminotransferase 13 U/L (0-40); Albumin Level 4.4 g/dL (3.5-5.0); Alkaline Phosphatase 83 U/L (39-117); Anion Gap 17 (12-20); Aspartate Amino Transferase 16 U/L (5-37); Bilirubin Total 0.6 mg/dL (0.0-1.0); Blood Urea Nitrogen 11 mg/dL (9-16); Calcium 9.3 mg/dL (8.4-10.2); Carbon Dioxide 26 mmol/L (22-29); Chloride 103 mmol/L (96-108); Cholesterol 175 mg/dL; Estimated Glomerular Filt Rate > 60; Glucose Fasting 108 mg/dL (60-99); HDL Cholesterol 67 mg/dL; LDL Cholesterol Calculated 95 mg/dl; Potassium 4.5 mmol/L (3.3-5.1); Sodium 141 mmol/L (135-145); Total Protein 6.8 g/dL (6.5-8.0); Triglycerides 67 mg/dL
[2022-03-11 12:52] LABS: Prostate Specific Antigen Scr 0.34 ng/mL (<0.05-4.0)
== END 2022-03-11 10:07 | disposition home or self-care (01) ==
LOC: HO.LAB 10:06
PROVIDERS: Visit Provider Internal Medicine
DX: Z12.5 Encounter for screening for malignant neoplasm of prostate (principal); I10 Essential (primary) hypertension; E78.00 Pure hypercholesterolemia, unspecified; R35.1 Nocturia
CPT/HCPCS: 36415; 80053; 80061; 84153; 85025

== ENCOUNTER 2022-09-29 14:07 | Emergency (ER) | payer MEDICARE, OTHER, SELFPAY ==
--- NOTE | ~2022-09-29 | US_ITS ---
EXAMINATION: US VENOUS ULTRASOUND WITH DOPPLER LOWER EXTREMITY, BILATERAL CLINICAL INFORMATION: Pain COMPARISON: None available. TECHNIQUE: Ultrasound of the deep veins is performed from the hip to the calf with compression sonography and color and pulse Doppler assessment. Spectral analysis with color-flow imaging is performed. FINDINGS: RIGHT: There is normal venous compression and respiratory variation and augmented flow. The visualized common femoral vein, superficial femoral vein, profunda femoral vein, popliteal vein, and the trifurcation region shows no evidence of deep venous thrombosis. There is no significant popliteal fossa cyst. LEFT: There is normal venous compression and respiratory variation and augmented flow. The visualized common femoral vein, superficial femoral vein, profunda femoral vein, popliteal vein, and the trifurcation region shows no evidence of deep venous thrombosis. There is no significant popliteal fossa cyst. US/US venous duplex LE BI IMPRESSION: No DVT demonstrated in the bilateral lower extremity.
--- NOTE | ~2022-09-29 | CT_ITS ---
EXAMINATION: CT ANGIOGRAM HEAD CT ANGIOGRAM NECK CLINICAL INFORMATION: Reason for Exam lower extremity weakness COMPARISON: Earlier same day noncontrast head CT TECHNIQUE: Initial noncontrast tissue recovery technician imaging of the head and neck was performed. Comparison is made with noncontrast head CT from earlier today. Test bolus sequences followed by intravenous administration 70 mL of Omnipaque 350. Helical imaging was performed in the axial plane from the aortic arch to the skull vertex. Delayed postcontrast imaging of the head was also performed. The data was processed at the magnetic resonance technologist's workstation for generation of MIP sequences. Angled MIPs and volume rendered reformatted images were also generated at an offline 3D workstation. Stenoses are assessed in accordance with NASCET criteria unless otherwise indicated. DLP: 1459.47 mGy-cm This CT examination was performed using dose optimization techniques as appropriate, variously including the following: *Automated exposure control. *Adjustment of mA and/or kV according to patient size (this includes techniques or standardized protocols for targeted exams where dose is matched to indication/reason for exam; i.e. extremities or head). *Use of iterative reconstruction technique. FINDINGS: CT Head: There is no evidence of acute intracranial hemorrhage or edematous territorial infarction. A few foci of hypoattenuation in the periventricular and deep white matter are consistent with mild microangiopathy. Chronic lacunar infarct involving the right basal ganglia/anterior limb of internal capsule. There is asymmetric hypodensity involving the right frontal white matter which is nonspecific but may reflect sequela of chronic microvascular ischemia. [place]-white matter differentiation is preserved. The ventricles are normal in size and configuration. No evidence for obstructive hydrocephalus. No abnormal mass effect or midline shift. No extra-axial fluid collections. No pathologic intra-axial enhancement or regional oligemia. No acute soft tissue or osseous abnormalities. Complete opacification of the right maxillary sinus. Mild to moderate ethmoid and frontal sinus mucosal thickening and opacification. CT Neck: The thyroid gland and remaining cervical soft tissues are within normal limits. Mild to moderate multilevel cervical spondylosis. CT Upper Chest: The visualized lung apices and upper mediastinum are within normal limits. Neck CTA: Aortic Arch: Normal contour and caliber. Two vessel branching pattern of the arch with left common carotid artery arising from the brachiocephalic trunk. Great Vessel Origins: No significant stenosis of the branch origins. Right Common Carotid Artery: No focal stenosis or occlusion. Cervical Right Internal Carotid Artery: Normal opacification without focal stenosis or occlusion. Left Common Carotid Artery: No focal stenosis or occlusion. Cervical Left Internal Carotid Artery: Normal opacification without focal stenosis or occlusion. Cervical Right Vertebral Artery: No focal stenosis or occlusion. Cervical Left Vertebral Artery: No focal stenosis or occlusion. Brain CTA: Intracranial Internal Carotid Arteries: Calcific atherosclerotic disease of the intracranial internal carotid arteries without occlusion or flow-limiting stenosis. Right Anterior Cerebral Artery: Normal A1 segment. Normal opacification of the distal LAUREN segments. Left Anterior Cerebral Artery: Normal A1 segment. Normal opacification of the distal LAUREN segments. Anterior Communicating Artery: Normal. Right Middle Cerebral Artery: Normal M1 segment of the MCA without focal stenosis or occlusion. Normal arborization of the distal segments. Left Middle Cerebral Artery: Normal M1 segment of the MCA without focal stenosis or occlusion. Normal arborization of the distal segments. Right Vertebral Artery: Normal V4 segment. Left Vertebral Artery: Normal V4 segment. Basilar Artery: Normal without focal stenosis or occlusion. Normal appearance of the proximal superior cerebellar arteries. Right Posterior Cerebral Artery: Normal P1 segment. Normal opacification of the distal SCARF AND ANNEAL OPERATOR segments. Left Posterior Cerebral Artery: Normal P1 segment. Normal opacification of the distal SCARF AND ANNEAL OPERATOR segments. Normal opacification of the superior sagittal, straight, transverse, and sigmoid sinuses. CT/CT angio head neck IMPRESSION: No arterial high grade stenosis or large vessel occlusion in the head or neck.
--- NOTE | ~2022-09-29 | CT_ITS ---
EXAMINATION: CT HEAD WITHOUT CONTRAST CLINICAL INFORMATION: Trauma COMPARISON: None available. TECHNIQUE: Contiguous axial imaging was performed from the skull base to vertex without intravenous administration of contrast. This CT examination was performed using dose optimization techniques as appropriate, variously including the following: *Automated exposure control *Adjustment of mA and/or kV according to patient size (this includes techniques or standardized protocols for targeted exams where dose is matched to indication/reason for exam; i.e. extremities or head) *Use of iterative reconstruction technique DLP: 600 mGy-cm FINDINGS: There is no evidence of an extra-axial collection. There is no evidence of intra or extra-axial hemorrhage. The ventricles and extra-axial CSF spaces are prominent suggestive of mild generalized atrophy. There is low-attenuation seen in the right basal ganglia/anterior limb of the internal capsule suggestive of a old lacunar infarct. There is asymmetric periventricular white matter disease more superiorly adjacent to the frontal horn of the right lateral ventricle. No mass or mass effect is seen. Review at bone windows is unremarkable. There is sinus disease in the bilateral frontal and ethmoid sinuses and right maxillary sinus. There is almost complete opacification of the right maxillary sinus. There is abnormal soft tissue in the right frontoethmoidal and right recess and ostiomeatal complex on the right. CT/CT head/brain wo IV con IMPRESSION: Probable old right basal ganglia/anterior limb internal capsule lacunar infarct and asymmetric white matter disease more superiorly adjacent to the frontal horn of the right lateral ventricle. Findings could be better evaluated with MRI if clinically indicated. Mild generalized atrophy. Severe sinus disease.
[2022-09-29 14:28] VITALS: BP 160/83; PULSE 91; RESP 20; TEMP 35.7; O2SAT 97; BMI 31.0
--- NOTE | 2022-09-29 14:28 | ED.GENADULT ---
HPI - General Adult General Chief complaint: General Medical <EMILI Owen - Last Filed: 09/29/22 14:37> Stated complaint: Shaking/Unable to walk episode T-1 <EMILI Owen - Last Filed: 09/29/22 14:37> Time Seen by Provider: 09/29/22 21:13 <EMILI Owen - Last Filed: 09/29/22 14:37> Source: patient, family () and old records reviewed <Diaz Kelley - Last Filed: 09/29/22 23:32> Mode of arrival: ambulatory <Diaz Kelley - Last Filed: 09/29/22 23:32> Limitations: no limitations <Diaz Kelley - Last Filed: 09/29/22 23:32> History of Present Illness HPI narrative: 72-year-old male past medical history significant for hypertension, hyperlipidemia presents for evaluation of shaking and weakness. Patient states that yesterday around 1:30 p.m. while standing for approximately 10 minutes he states my right leg began to shake and feel weak and the my left leg began to shake and feel. weak he was walking with his cane at a time and then he states that both of his arms started to shake and he felt like he was going to pass out. he was helped back to the car and after sitting for a few minutes his symptoms completely resolved the patient was awake the entire time, did not have any chest pain, palpitations, shortness of breath he did not have any difficulty speaking or facial droop per his he states that he has felt well all day today but his for him to get checked out <Diaz Kelley - Last Filed: 09/29/22 23:32> Related Data Home medications: Home Medications Medication Instructions Recorded Confirmed lisinopril 10 mg tablet 1 tab PO DAILY 06/19/20 06/24/20 simvastatin 40 mg tablet 1 tab PO DAILY 06/19/20 06/24/20 Previous Rx's Medication Instructions Recorded acetaminophen 325 mg tablet 650 mg PO Q6H PRN Pain, Mild (Pain 07/04/20 Scale 1-3) 30 days #240 tabs aspirin 325 mg tablet 325 mg PO BID 30 days #60 tabs 07/04/20 celecoxib 200 mg capsule 200 mg PO BID 30 days #60 caps 07/04/20 oxycodone 5 mg tablet 5 mg PO Q4H PRN Pain, Moderate 07/04/20 (Pain Scale 4-6 7 days #42 tabs sennosides 8.6 mg tablet (Senna 17.2 mg PO BEDTIME PRN 07/04/20 Lax) Constipation 30 days #60 tabs <EIMLI Owen - Last Filed: 09/29/22 14:37> Allergies/adverse reactions: Allergies Allergy/AdvReac Type Severity Reaction Status Date / Time No Known Allergies Allergy Verified 11/14/20 14:27 [No Known Allergies*] <EMILI Owen - Last Filed: 09/29/22 14:37> Review of Systems Constitutional: Constitutional: Denies frequent falls and Denies headache(s) <Diaz Kelley - Last Filed: 09/29/22 23:32> Eyes: Eyes: Denies blurry vision <Diaz Kelley - Last Filed: 09/29/22 23:32> ENT: Denies headache(s) <Diaz Kelley - Last Filed: 09/29/22 23:32> Cardiovascular: Cardiovascular: Denies chest pain, Denies syncope and Reports lightheadedness <Diaz Kelley - Last Filed: 09/29/22 23:32> Respiratory: Respiratory: Denies cough <Diaz Kelley - Last Filed: 09/29/22 23:32> Gastrointestinal: Gastrointestinal: Denies abdominal pain, Denies nausea and Denies vomiting <Diaz Kelley - Last Filed: 09/29/22 23:32> Genitourinary: Genitourinary: Denies dysuria <Diaz Kelley - Last Filed: 09/29/22 23:32> Musculoskeletal: Musculoskeletal: Denies tingling <Diaz Kelley - Last Filed: 09/29/22 23:32> Neurologic: Denies syncope, Denies frequent falls, Denies headache(s), Denies tingling, Denies paresthesias and Reports tremor(s) <Diaz Kelley - Last Filed: 09/29/22 23:32> PMFSH Past Medical History Medical History: Medical History Closed displaced fracture of left femoral neck with malunion Closed displaced fracture of left femoral neck with routine healing High cholesterol Hypertension <EMILI Owen - Last Filed: 09/29/22 14:37> Surgical History: Surgical History History of tonsillectomy Status post hip surgery <EMILI Owen - Last Filed: 09/29/22 14:37> Social History Social History: Social History Are you a primary laboratory animal care veterinarian to a significant other at home: No Do you presently have visiting nurse or other home services: No Alcohol intake: current Alcohol intake frequency: holidays/special occasions only Alcohol type: beer and hard liquor Cigarette Packs Per Day: 0.25 Cigarettes Per Day: 5.0 Years Smoked: 50 Smoked in Last 30 Days: No Second Hand Smoke Exposure: No Use of substances other than those prescribed or required for medical reasons: No Any prior treatment program specific to substance use: No Advance Directives: No Advance Directives Information Provided: No service: No Current occupational status: retired Current occupation: left handed <EMILI Owen - Last Filed: 09/29/22 14:37> Physical Exam ED Vital Signs: Vital Signs - 24 hr 09/29/22 14:28 09/29/22 20:00 09/29/22 21:31 Temperature 96.3 F L 97.7 F 98.5 F Pulse Rate 91 80 75 Respiratory Rate 20 16 16 Blood Pressure 160/83 H 142/85 H 137/75 Pulse Oximetry 97 94 98 Oxygen Delivery Method Room Air Room Air Room Air BMI result Body Mass Index 31.0 <EMILI Owen - Last Filed: 09/29/22 14:37> Vital Signs - 24 hr 09/29/22 14:28 09/29/22 20:00 09/29/22 21:31 Temperature 96.3 F L 97.7 F 98.5 F Pulse Rate 91 80 75 Respiratory Rate 20 16 16 Blood Pressure 160/83 H 142/85 H 137/75 Pulse Oximetry 97 94 98 Oxygen Delivery Method Room Air Room Air Room Air BMI result Body Mass Index 31.0 < Last Filed: 09/29/22 23:32> Const General: healthy appearing, comfortable, no acute distress, alert and awake <Diaz Last Filed: 09/29/22 23:32> Nutritional Appearance: well nourished < Last Filed: 09/29/22 23:32> Orientation/consciousness: patient oriented x3 < Last Filed: 09/29/22 23:32> HENMT Head: Yes normocephalic and Yes atraumatic < Last Filed: 09/29/22 23:32> Throat: Yes posterior oropharynx normal < Last Filed: 09/29/22 23:32> Eyes Eyelids: Yes eyelids normal < Last Filed: 09/29/22 23:32> Conjunctivae: conjunctivae normal < Last Filed: 09/29/22 23:32> Sclerae: sclerae normal < Last Filed: 09/29/22 23:32> Corneas: corneas normal < Last Filed: 09/29/22 23:32> Pupils: Equal, round and reactive pupils present < Filed: 09/29/22 23:32> EOM: EOMs intact bilaterally < Last Filed: 09/29/22 23:32> Neck Neck: Yes full ROM < Last Filed: 09/29/22 23:32> Resp Effort & Inspection: normal respiratory effort, able to speak in complete sentences, no audible wheezes and not labored < Last Filed: 09/29/22 23:32> Auscultation: clear to auscultation bilaterally < Last Filed: 09/29/22 23:32> Cardio Other: 2+ nonpitting edema to lower extremities bilaterally < Last Filed: 09/29/22 23:32> Rate: regular rate <Diaz Kellye - Last Filed: 09/29/22 23:32> Rhythm: regular rhythm <Diaz Kelley - Last Filed: 09/29/22 23:32> GI Inspection: No distended <Diaz Kelley - Last Filed: 09/29/22 23:32> Palpation (GI): Soft to palpation, not firm, nontender, no guarding and not rigid <Diaz Kelley - Last Filed: 09/29/22 23:32> Auscultation: normoactive bowel sounds <Diaz Kelley - Last Filed: 09/29/22 23:32> Skin General skin exam: no rashes or lesions noted and elasticity normal <Diaz Kelley - Last Filed: 09/29/22 23:32> Neuro General: patient oriented x3 <Diaz Kelley - Last Filed: 09/29/22 23:32> Cranial nerves: Yes CN's II-XII intact bilaterally, Yes Equal, round and reactive pupils present and Yes Bilaterally intact EOM present <Diaz Kelley - Last Filed: 09/29/22 23:32> Cognition (Neuro): normal cognition <Diaz Kelley - Last Filed: 09/29/22 23:32> Extrem Other: Moving all extremities well without any obvious deformities <Diaz Kelley - Last Filed: 09/29/22 23:32> Course Course Course Narrative: RME: 72yo M w/PMHx HTN, HLD, c/o whole body tremors/shakiness with presyncope/lightheadedness yesterday at 13:45. Patient admits symptoms started in RLE, progressed to LLE and up entire body. Denies fall/head trauma. Symptoms resolved at present. Denies incontinence or tongue biting No focal neuro deficits. Ambulating with steady with cane, baseline. EKG, labs, UA, head CT ordered Full HPI, ROS and PE to be performed by primary ED provider. <EMILI Owen - Last Filed: 09/29/22 14:37> Reevaluation(s) Reevaluation #1: patient had unremarkable workup thus far. He have a very low suspicion for TIA/CVA be the etiology of the patient's symptoms. I discussed with my attending, Dr Ortiz who recommends CTA of the head and neck and if no large vessel occlusion, the patient can safely be discharged to follow-up with his PCP. I will also get ultrasound of lower extremities as the patient reports he has a full sensation in both legs but right greater than left and they seem swollen to him. <Diaz Kelley - Last Filed: 09/29/22 23:32> Time: 21:46 <Diaz Kelley - Last Filed: 09/29/22 23:32> Reevaluation #2: discussed patient's workup with him, the ultrasound negative for DVT, CTA head and neck is negative for large vessel occlusion. The patient is stable for discharge to follow-up with his PCP <Diaz Kelley - Last Filed: 09/29/22 23:32> Time: 23:29 <Diaz Kelley - Last Filed: 09/29/22 23:32> Medications Administered Discontinued Medications Generic Name Dose Route Start Last Admin Trade Name Freq PRN Reason Stop Dose Admin Iohexol 100 ml 09/29/22 22:31 09/29/22 22:31 Iohexol 350 Mg/Ml 100 Ml Infus..Btl IV 09/29/22 22:32 70 ml ONCE ONE Administration <EMILI Owen - Last Filed: 09/29/22 14:37> Medications Administered Discontinued Medications Generic Name Dose Route Start Last Admin Trade Name Freq PRN Reason Stop Dose Admin Iohexol 100 ml 09/29/22 22:31 09/29/22 22:31 Iohexol 350 Mg/Ml 100 Ml Infus..Btl IV 09/29/22 22:32 70 ml ONCE ONE Administration <Diaz Kelley - Last Filed: 09/29/22 23:32> Medical Decision Making Medical Decision Making MDM Narrative: the patient reports a near syncopal episode that happened over 24 hours ago. he describes tremors to both upper and lower extremities, no focal weakness reported, no facial droop or dysarthria. The patient did have a headache I have low suspicion this was a CVA related event. 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 But no acute ischemia, hemorrhage or mass effect. The patient has an NIH stroke score of 0. His workup was unremarkable <Diaz Kelley - Last Filed: 09/29/22 23:32> Differential Diagnosis near syncope Syncope Tremors Seizure disorder less likely CVA less likely <Diaz Kelley - Last Filed: 09/29/22 23:32> Lab Data [facility] Lab Attestation statement: I reviewed the patient's lab results. <Diaz Kelley - Last Filed: 09/29/22 23:32> Result Diagrams: 09/29/22 15:07 09/29/22 15:07 <EMILI Owen - Last Filed: 09/29/22 14:37> Labs: Lab Results 09/29/22 09/29/22 09/29/22 Range/Units 15:07 15:07 15:07 WBC 9.7 (4.8-10.8) X10*3/uL RBC 4.72 (4.60-5.80) X10*6/uL Hgb 13.9 L (14.0-18.0) g/dl Hct 42.3 (42.0-52.0) % MCV 89.6 (80.0-98.0) fL MCH 29.4 (27.0-33.0) pg MCHC 32.9 (31.0-36.0) g/dl RDW 14.0 (11.0-16.0) % Plt Count 274 (160-400) X10*3/uL MPV 9.0 L (9.4-12.4) fL Immature Gran % (Auto) 0.4 (0.0-0.4) % Neut % (Auto) 66.0 (45-73) % Lymph % (Auto) 22.5 (20-40) % [place] % (Auto) 9.1 (2-11) % Eos % (Auto) 1.6 (0-4) % Baso % (Auto) 0.4 (0-2) % Lymph # (Auto) 2.2 (1.2-4.9) X10*3/uL [place] # (Auto) 0.9 (0.1-1.2) X10*3/uL Eos # (Auto) 0.2 (0.0-0.4) X10*3/uL Baso # (Auto) 0.0 (0.0-0.2) X10*3/uL Abs Immat Gran (auto) 0.04 H (0.00-0.03) X10*3/uL Absolute Neuts (auto) 6.4 (2.0-8.3) x10*3/uL Absolute Nucleated RBC 0.000 (0.0-0.012) X10*3/uL Nucleated RBC % (auto) 0.0 (0.0-0.2) /100WBC PT 10.8 (10.0-13.1) SEC INR 0.9 (0.9-1.1) Sodium 140 (135-145) mmol/L Potassium 4.0 (3.3-5.1) mmol/L Chloride 107 (96-108) mmol/L Carbon Dioxide 25 (22-29) mmol/L Anion Gap 12 (12-20) BUN 15 (9-16) mg/dL Creatinine 0.88 (0.5-1.4) mg/dL Estim Creat Clear Calc 86.3 Estimated GFR > 60 Random Glucose 94 (60-115) mg/dL Calcium 9.4 (8.4-10.2) mg/dL Magnesium 2.1 (1.6-2.6) mg/dL Total Bilirubin 0.4 (0.0-1.0) mg/dL Direct Bilirubin 0.1 (0.0-0.5) mg/dL AST 13 (5-37) U/L ALT 10 (0-40) U/L Alkaline Phosphatase 81 (39-117) U/L Total Creatine Kinase 58 (38-174) U/L Troponin I High Sens (<3.5-35.0) ng/L Total Protein 6.8 (6.5-8.0) g/dL Albumin 4.4 (3.5-5.0) g/dL Urine Color Urine Appearance Urine pH (5.0-9.0) Ur Specific [place] (1.005-1.025) Urine Protein (Neg-Trace) mg/dL Urine Glucose (UA) (Negative) mg/dL Urine Ketones (Negative) mg/dL Urine Blood (Negative) Urine Nitrite (Negative) Ur Leukocyte Esterase (Negative) 09/29/22 09/29/22 Range/Units 15:07 15:07 WBC (4.8-10.8) X10*3/uL RBC (4.60-5.80) X10*6/uL Hgb (14.0-18.0) g/dl Hct (42.0-52.0) % MCV (80.0-98.0) fL MCH (27.0-33.0) pg MCHC (31.0-36.0) g/dl RDW (11.0-16.0) % Plt Count (160-400) X10*3/uL MPV (9.4-12.4) fL Immature Gran % (Auto) (0.0-0.4) % Neut % (Auto) (45-73) % Lymph % (Auto) (20-40) % [place] % (Auto) (2-11) % Eos % (Auto) (0-4) % Baso % (Auto) (0-2) % Lymph # (Auto) (1.2-4.9) X10*3/uL [place] # (Auto) (0.1-1.2) X10*3/uL Eos # (Auto) (0.0-0.4) X10*3/uL Baso # (Auto) (0.0-0.2) X10*3/uL Abs Immat Gran (auto) (0.00-0.03) X10*3/uL Absolute Neuts (auto) (2.0-8.3) x10*3/uL Absolute Nucleated RBC (0.0-0.012) X10*3/uL Nucleated RBC % (auto) (0.0-0.2) /100WBC PT (10.0-13.1) SEC INR (0.9-1.1) Sodium (135-145) mmol/L Potassium (3.3-5.1) mmol/L Chloride (96-108) mmol/L Carbon Dioxide (22-29) mmol/L Anion Gap (12-20) BUN (9-16) mg/dL Creatinine (0.5-1.4) mg/dL Estim Creat Clear Calc Estimated GFR Random Glucose (60-115) mg/dL Calcium (8.4-10.2) mg/dL Magnesium (1.6-2.6) mg/dL Total Bilirubin (0.0-1.0) mg/dL Direct Bilirubin (0.0-0.5) mg/dL AST (5-37) U/L ALT (0-40) U/L Alkaline Phosphatase (39-117) U/L Total Creatine Kinase (38-174) U/L Troponin I High Sens < 2.7 (<3.5-35.0) ng/L Total Protein (6.5-8.0) g/dL Albumin (3.5-5.0) g/dL Urine Color Yellow Urine Appearance Clear Urine pH 5.5 (5.0-9.0) Ur Specific [place] 1.025 (1.005-1.025) Urine Protein Trace (Neg-Trace) mg/dL Urine Glucose (UA) Negative (Negative) mg/dL Urine Ketones Trace (Negative) mg/dL Urine Blood Negative (Negative) Urine Nitrite Negative (Negative) Ur Leukocyte Esterase Negative (Negative) <EMILI Owen - Last Filed: 09/29/22 14:37> Lab Results 09/29/22 09/29/22 09/29/22 Range/Units 15:07 15:07 15:07 WBC 9.7 (4.8-10.8) X10*3/uL RBC 4.72 (4.60-5.80) X10*6/uL Hgb 13.9 L (14.0-18.0) g/dl Hct 42.3 (42.0-52.0) % MCV 89.6 (80.0-98.0) fL MCH 29.4 (27.0-33.0) pg MCHC 32.9 (31.0-36.0) g/dl RDW 14.0 (11.0-16.0) % Plt Count 274 (160-400) X10*3/uL MPV 9.0 L (9.4-12.4) fL Immature Gran % (Auto) 0.4 (0.0-0.4) % Neut % (Auto) 66.0 (45-73) % Lymph % (Auto) 22.5 (20-40) % [place] % (Auto) 9.1 (2-11) % Eos % (Auto) 1.6 (0-4) % Baso % (Auto) 0.4 (0-2) % Lymph # (Auto) 2.2 (1.2-4.9) X10*3/uL [place] # (Auto) 0.9 (0.1-1.2) X10*3/uL Eos # (Auto) 0.2 (0.0-0.4) X10*3/uL Baso # (Auto) 0.0 (0.0-0.2) X10*3/uL Abs Immat Gran (auto) 0.04 H (0.00-0.03) X10*3/uL Absolute Neuts (auto) 6.4 (2.0-8.3) x10*3/uL Absolute Nucleated RBC 0.000 (0.0-0.012) X10*3/uL Nucleated RBC % (auto) 0.0 (0.0-0.2) /100WBC PT 10.8 (10.0-13.1) SEC INR 0.9 (0.9-1.1) Sodium 140 (135-145) mmol/L Potassium 4.0 (3.3-5.1) mmol/L Chloride 107 (96-108) mmol/L Carbon Dioxide 25 (22-29) mmol/L Anion Gap 12 (12-20) BUN 15 (9-16) mg/dL Creatinine 0.88 (0.5-1.4) mg/dL Estim Creat Clear Calc 86.3 Estimated GFR > 60 Random Glucose 94 (60-115) mg/dL Calcium 9.4 (8.4-10.2) mg/dL Magnesium 2.1 (1.6-2.6) mg/dL Total Bilirubin 0.4 (0.0-1.0) mg/dL Direct Bilirubin 0.1 (0.0-0.5) mg/dL AST 13 (5-37) U/L ALT 10 (0-40) U/L Alkaline Phosphatase 81 (39-117) U/L Total Creatine Kinase 58 (38-174) U/L Troponin I High Sens (<3.5-35.0) ng/L Total Protein 6.8 (6.5-8.0) g/dL Albumin 4.4 (3.5-5.0) g/dL Urine Color Urine Appearance Urine pH (5.0-9.0) Ur Specific [place] (1.005-1.025) Urine Protein (Neg-Trace) mg/dL Urine Glucose (UA) (Negative) mg/dL Urine Ketones (Negative) mg/dL Urine Blood (Negative) Urine Nitrite (Negative) Ur Leukocyte Esterase (Negative) 09/29/22 09/29/22 Range/Units 15:07 15:07 WBC (4.8-10.8) X10*3/uL RBC (4.60-5.80) X10*6/uL Hgb (14.0-18.0) g/dl Hct (42.0-52.0) % MCV (80.0-98.0) fL MCH (27.0-33.0) pg MCHC (31.0-36.0) g/dl RDW (11.0-16.0) % Plt Count (160-400) X10*3/uL MPV (9.4-12.4) fL Immature Gran % (Auto) (0.0-0.4) % Neut % (Auto) (45-73) % Lymph % (Auto) (20-40) % [place] % (Auto) (2-11) % Eos % (Auto) (0-4) % Baso % (Auto) (0-2) % Lymph # (Auto) (1.2-4.9) X10*3/uL [place] # (Auto) (0.1-1.2) X10*3/uL Eos # (Auto) (0.0-0.4) X10*3/uL Baso # (Auto) (0.0-0.2) X10*3/uL Abs Immat Gran (auto) (0.00-0.03) X10*3/uL Absolute Neuts (auto) (2.0-8.3) x10*3/uL Absolute Nucleated RBC (0.0-0.012) X10*3/uL Nucleated RBC % (auto) (0.0-0.2) /100WBC PT (10.0-13.1) SEC INR (0.9-1.1) Sodium (135-145) mmol/L Potassium (3.3-5.1) mmol/L Chloride (96-108) mmol/L Carbon Dioxide (22-29) mmol/L Anion Gap (12-20) BUN (9-16) mg/dL Creatinine (0.5-1.4) mg/dL Estim Creat Clear Calc Estimated GFR Random Glucose (60-115) mg/dL Calcium (8.4-10.2) mg/dL Magnesium (1.6-2.6) mg/dL Total Bilirubin (0.0-1.0) mg/dL Direct Bilirubin (0.0-0.5) mg/dL AST (5-37) U/L ALT (0-40) U/L Alkaline Phosphatase (39-117) U/L Total Creatine Kinase (38-174) U/L Troponin I High Sens < 2.7 (<3.5-35.0) ng/L Total Protein (6.5-8.0) g/dL Albumin (3.5-5.0) g/dL Urine Color Yellow Urine Appearance Clear Urine pH 5.5 (5.0-9.0) Ur Specific [place] 1.025 (1.005-1.025) Urine Protein Trace (Neg-Trace) mg/dL Urine Glucose (UA) Negative (Negative) mg/dL Urine Ketones Trace (Negative) mg/dL Urine Blood Negative (Negative) Urine Nitrite Negative (Negative) Ur Leukocyte Esterase Negative (Negative) <Diaz Kelley - Last Filed: 09/29/22 23:32> Radiology Impression Discussion of test interpretation with radiology: I have reviewed the radiologist's reading. <Diaz Kelley - Last Filed: 09/29/22 23:32> Discharge Plan Discharge Clinical Impression: Near syncope <EMILI Owen - Last Filed: 09/29/22 14:37> Patient Disposition: Home, Self-Care <EMILI Owen - Last Filed: 09/29/22 14:37> Instructions: Near Syncope (ED) <EMILI Owen - Last Filed: 09/29/22 14:37> Additional Instructions: your workup in the emergency department today was reassuring. This includes your CT scans, chest x-ray, EKG and blood work it is difficult to explain exactly what happened yesterday, as he did not present until today it is possible that standing still for long time caused her blood pressure to drop making you feel weak and lightheaded this is sometimes a sign that you will pass out if you do not sit down it is reassuring that your symptoms resolved after sitting down for a few minutes follow-up with your primary doctor you should get an outpatient brain MRI to follow-up on the CT scan of her brain that we talked about earlier <EMILI Owen - Last Filed: 09/29/22 14:37> Prescriptions: No Action simvastatin 40 mg tablet 1 tab PO DAILY lisinopril 10 mg tablet 1 tab PO DAILY acetaminophen 325 mg Tablet 650 mg PO Q6H PRN (Reason: Pain, Mild (Pain Scale 1-3)) 30 Days Qty: 240 0RF aspirin 325 mg Tablet 325 mg PO BID 30 Days Qty: 60 0RF celecoxib 200 mg Capsule 200 mg PO BID 30 Days Qty: 60 0RF oxycodone 5 mg tablet 5 mg PO Q4H PRN (Reason: Pain, Moderate (Pain Scale 4-6) 7 Days Qty: 42 0RF sennosides [Senna Lax] 8.6 mg Tablet 17.2 mg PO BEDTIME PRN (Reason: Constipation) 30 Days Qty: 60 0RF <EMILI Owen - Last Filed: 09/29/22 14:37> Referrals: Fei Gonzalez MD [Primary Care Provider] - <EMILI Owen - Last Filed: 09/29/22 14:37>
--- NOTE | 2022-09-29 14:29 | ECG_ITS ---
Test Reason : SHAKY Blood Pressure : / mmHG Vent. Rate : 081 BPM Atrial Rate : 081 BPM P-R Int : 150 ms QRS Dur : 090 ms QT Int : 382 ms P-R-T Axes : 051 000 026 degrees QTc Int : 443 ms Sinus rhythm with occasional Premature ventricular complexes Nonspecific ST abnormality Abnormal ECG When compared with ECG of 20-JUN-2020 12:59, Premature ventricular complexes are now Present Referred By: Zelda Hart Electronically Signed By:PRATIBHA ARGUETA
[2022-09-29 15:15] LABS: MANUAL DIFF FLAG NO
[2022-09-29 15:18] LABS: Basophils Percent Auto 0.4 % (0-2); Eosinophils Absolute Auto 0.2 X10*3/uL (0.0-0.4); Eosinophils Percent Auto 1.6 % (0-4); Hematocrit 42.3 % (42.0-52.0); Hemoglobin 13.9 g/dl (14.0-18.0); Imm Gran Abs Auto 0.04 X10*3/uL (0.00-0.03); Imm Gran Pct Auto 0.4 % (0.0-0.4); Lymphocytes Absolute Auto 2.2 X10*3/uL (1.2-4.9); Lymphocytes Percent Auto 22.5 % (20-40); Mean Corpuscular HGB Conc 32.9 g/dl (31.0-36.0); Mean Corpuscular Hemoglobin 29.4 pg (27.0-33.0); Mean Corpuscular Volume 89.6 fL (80.0-98.0); Monocytes Absolute Auto 0.9 X10*3/uL (0.1-1.2); Monocytes Percent Auto 9.1 % (2-11); Neutrophils Absolute Auto 6.4 x10*3/uL (2.0-8.3); Platelet Count 274 X10*3/uL (160-400); Red Blood Count 4.72 X10*6/uL (4.60-5.80); White Blood Count 9.7 X10*3/uL (4.8-10.8)
[2022-09-29 15:19] LABS: Appearance Urine Clear; Color Urine Yellow; Glucose Urine UA Negative (Negative); Leukocyte Esterase Urine Negative (Negative); Nitrite Urine Negative (Negative); PH 5.5 (5.0-9.0); Specific Gravity - Urine 1.025 (1.005-1.025); Urine Blood Negative (Negative); Urine Ketones Trace mg/dL (Negative); Urine Protein Trace mg/dL (Neg-Trace)
[2022-09-29 15:23] LABS: INTERNATIONAL NORM RATIO 0.9 (0.9-1.1); Prothrombin Time 10.8 SEC (10.0-13.1)
[2022-09-29 15:39] LABS: Alanine Aminotransferase 10 U/L (0-40); Albumin Level 4.4 g/dL (3.5-5.0); Alkaline Phosphatase 81 U/L (39-117); Anion Gap 12 (12-20); Aspartate Amino Transferase 13 U/L (5-37); Bilirubin Direct 0.1 mg/dL (0.0-0.5); Bilirubin Total 0.4 mg/dL (0.0-1.0); Blood Urea Nitrogen 15 mg/dL (9-16); Calcium 9.4 mg/dL (8.4-10.2); Chloride 107 mmol/L (96-108); Creatinine Clr Calc Pharmacy 86.3; Estimated Glomerular Filt Rate > 60; Glucose Random 94 mg/dL (60-115); Magnesium 2.1 mg/dL (1.6-2.6); Sodium 140 mmol/L (135-145); Total Protein 6.8 g/dL (6.5-8.0)
[2022-09-29 15:48] LABS: Carbon Dioxide 25 mmol/L (22-29); Troponin-I High Sensitivity < 2.7 ng/L (<3.5-35.0)
[2022-09-29 20:00] VITALS: BP 142/85; PULSE 80; RESP 16; TEMP 36.5; O2SAT 94
[2022-09-29 21:31] VITALS: BP 137/75; PULSE 75; RESP 16; TEMP 36.9; O2SAT 98
[2022-09-29] MEDS: iohexoL 350 MG/ML 100 ML INFUS..BTL IV (22:31)
== END 2022-09-29 23:49 | disposition home or self-care (01) ==
PROVIDERS: Physician Assistant; Emergency Provider Internal Medicine; PCP Internal Medicine
DX: R55 Syncope and collapse (principal); R60.0 Localized edema; I10 Essential (primary) hypertension; E78.5 Hyperlipidemia, unspecified; Z79.899 Other long term (current) drug therapy; Z79.02 Long term (current) use of antithrombotics/antiplatelets
CPT/HCPCS: 36415; 70450; 70496; 70498; 80048; 80076; 81003; 82550; 83735; 84484; 85025; 85610; 93005; 93970; 99284; Q9967

== ENCOUNTER 2022-10-22 09:31 | Outpatient (REF) | payer MEDICARE, OTHER, SELFPAY ==
[2022-10-22 11:56] LABS: C Reactive Protein 0.45 mg/dL (< or = 0.50)
[2022-10-22 12:33] LABS: Free T4 (Free Thyroxine) 0.98 ng/dL (0.71-1.85); Thyroid Stimulating Hormone 0.97 uIU/mL (0.32-4.0); Vitamin B12 223 pg/mL (200-900)
== END 2022-10-22 09:32 | disposition home or self-care (01) ==
LOC: HO.10HDL 09:31
PROVIDERS: Visit Provider Internal Medicine
DX: I10 Essential (primary) hypertension (principal); R60.9 Edema, unspecified; R53.1 Weakness
CPT/HCPCS: 36415; 82550; 82607; 84439; 84443; 86140

== ENCOUNTER 2023-02-26 09:41 | Day surgery (SDC) | payer MEDICARE, OTHER, SELFPAY ==
--- NOTE | 2023-02-26 10:27 | HO.ANESPROP2 ---
FORMERLY [facility] Active Problems Active Problems: All Active Problems (Updated 09/30/22 @ 00:53 by Kristin Ag) History of total left hip replacement (Acute) Past Medical History Medical History Closed displaced fracture of left femoral neck with malunion High cholesterol Hypertension Closed displaced fracture of left femoral neck with routine healing Family History Family history of problems with anesthesia: No Surgical History Surgical History History of tonsillectomy Status post hip surgery History of Problems with Anesthesia: No Social History Social History Are you a primary animal care worker to a significant other at home: No Do you presently have visiting nurse or other home services: No Alcohol intake: current Alcohol intake frequency: holidays/special occasions only Alcohol type: beer and hard liquor Cigarette Packs Per Day: 0.25 Cigarettes Per Day: 5.0 Years Smoked: 50 Second Hand Smoke Exposure: No Advance Directives: No Advance Directives Information Provided: Yes service: No Current occupational status: retired Current occupation: left handed Meds Allergies Allergy/AdvReac Type Severity Reaction Status Date / Time No Known Allergies Allergy Verified 11/14/20 14:27 [No Known Allergies*] Home Medications Medication Instructions Recorded Confirmed Last Taken Type lisinopril 10 mg tablet 1 tab PO DAILY 06/19/20 06/24/20 Unknown History simvastatin 40 mg tablet 1 tab PO DAILY 06/19/20 06/24/20 Unknown History Exam Exam Date and Time: February 26, 2023 1027 Airway Mallampati Class: III TM Dist: >3cm Neck ROM: Full Loose/Missing/Broken Teeth: No Heart: RRR Lungs: CTA Assessment and Plan Assessment Anesthesia Assessment: Anesthesia Plan Discussed and Chart Reviewed Final Anesthetic Review Family History of Problems with Anesthesia: No History of Problems with Anesthesia: No ASA Class: II Final Preanesthetic Review: Meds/Allgs Chart Reviewed, Consent Obtained/Reviewed and Anes Risks/Benef Reviewed Patient Risk: Low Procedure Risk: Low Anesthetic Plan Anesthetic Plan: MAC: Disposition: Standard PACU
[2023-02-26 10:33] VITALS: BP 128/64; PULSE 93; RESP 18; TEMP 36.1; O2SAT 98; BMI 29.4
--- NOTE | 2023-02-26 11:04 | MHC.SHP ---
Pre-Procedural Eval Section A Date of Service: 02/26/23 Section B Chief Complaint: Encounter for screening for malignant neoplasm Details of Present Illness: see H&P no change Relevant Family History (Specify if Yes): No Relevant Social History: None Present Medications: see Short Stay Collaborative assessment Medical History: No relevant PMH History of Previous Operations: No relevant previous surgery Allergies: Allergies Allergy/AdvReac Type Severity Reaction Status Date / Time No Known Allergies Allergy Verified 11/14/20 14:27 [No Known Allergies*] Review of Systems Sugical H&P ROS: Negative: Constitution, Cardiovascular, Respiratory, Neurological, Psychiatric, Hem-Onc, Allergic/Immunologic, Gastrointestinal, Genitourinary, Musculoskeletal, Integumentary, Endocrine and Eyes/Ears/Nose/Throat Exam Surgical H&P Exam: Normal: HEENT, Normal: Heart, Normal: Lungs, Normal: Extremities, Normal: Abdomen, Normal: Skin and Normal: Neurological Plan Diagnosis/Plan: Unchanged I have reviewed the history and physical and performed a pertinent physical examination on my patient. No changes have occurred unless specified. Time Spent With Patient Time: Total time managing care of this patient today ____ minutes.
[2023-02-26 11:47] VITALS: BP 92/53; PULSE 77; RESP 12; TEMP 36.2; O2SAT 98
--- NOTE | 2023-02-26 11:48 | PM.OP ---
Brief Operative Note Date of Service: 02/26/23 Pre-op diagnosis: see h&P matheus lees Post-op diagnosis: same Procedure: colonoscopy Surgeon: Bhaskar Aguirre MD Anesthesia: MAC Was an Airset Caster used for this Procedure?: No Estimated blood loss (mL): 5 Pathology: other Condition: stable Disposition: PACU
[2023-02-26 12:02] VITALS: BP 135/61; PULSE 86; RESP 14; O2SAT 99
[2023-02-26 12:17] VITALS: BP 129/66; PULSE 77; RESP 16; TEMP 36.2; O2SAT 98
--- NOTE | 2023-02-26 12:20 | OP_ITS ---
DATE OF SERVICE: 02/26/2023 SURGEON: Bhaskar Aguirre MD INDICATIONS: Colon cancer screening and prior history of adenomatous colon polyps. PREOPERATIVE DIAGNOSIS: POSTOPERATIVE DIAGNOSIS: PROCEDURE PERFORMED: Colonoscopy to the terminal ileum with snare polypectomy and biopsy. ESTIMATED BLOOD LOSS: COMPLICATIONS: ANESTHESIA: Monitored anesthesia care. ASSISTANTS: SPECIMENS: DESCRIPTION OF PROCEDURE: History and physical performed. The risks and benefits of the procedure were explained to the patient. Informed consent was obtained. The patient was placed in the left lateral decubitus position. A digital rectal exam was performed and was found to be normal. The Olympus pediatric videocolonoscope was introduced into the rectum and advanced to the cecum. The cecum was identified by transillumination, palpation, and identification of ileocecal valve. Examination was performed. The scope was removed. He tolerated the procedure well and was returned to recovery area in stable condition. FINDINGS: The terminal ileum was examined and appeared normal. The visualized colonic mucosa was normal. The quality of the prep was good. At 75 cm were 2 polyps; 1 measuring 10 mm and 1 approximately 5 mm. Both were removed with a snare and recovered via suction. Two other polyps measuring less than 5 mm were identified and removed with biopsy forceps. These were located in the rectum and at 20 cm. The quality of prep was good. Retroflexed examination showed mild internal hemorrhoids and a hypertrophic anal papilla. IMPRESSION: Colon polyps. RECOMMENDATION: Follow up the biopsy results. MD KEYLA Yuen/KEITHL / [id number]
[2023-02-26 12:32] VITALS: BP 130/73; PULSE 83; RESP 16; TEMP 36.2; O2SAT 98
== END 2023-02-26 12:44 | disposition home or self-care (01) ==
PROVIDERS: PCP Internal Medicine; Visit Provider Internal Medicine Gastroenterology
PROC: 0DJD8ZZ Inspection of Lower Intestinal Tract, Via Natural or Artificial Opening Endoscopic (ICD-10-PCS; CPT 45378; principal; 2023-02-26 10:50)
DX: Z12.11 Encounter for screening for malignant neoplasm of colon (principal); Z86.010 Personal history of colon polyps; D12.4 Benign neoplasm of descending colon; K63.5 Polyp of colon; K62.1 Rectal polyp; K64.8 Other hemorrhoids; K62.89 Other specified diseases of anus and rectum; I10 Essential (primary) hypertension; E78.5 Hyperlipidemia, unspecified; Z79.82 Long term (current) use of aspirin; Z79.899 Other long term (current) drug therapy; F17.210 Nicotine dependence, cigarettes, uncomplicated
CPT/HCPCS: 45385; 45380; 88305

== ENCOUNTER 2023-04-21 06:52 | Outpatient (REF) | payer MEDICARE, OTHER, SELFPAY ==
[2023-04-21 07:12] LABS: MANUAL DIFF FLAG NO
[2023-04-21 07:37] LABS: Basophils Absolute Auto 0.1 X10*3/uL (0.0-0.2); Basophils Percent Auto 0.8 % (0-2); Eosinophils Absolute Auto 0.4 X10*3/uL (0.0-0.4); Eosinophils Percent Auto 5.3 % (0-4); Hematocrit 43.2 % (42.0-52.0); Hemoglobin 14.1 g/dl (14.0-18.0); Imm Gran Abs Auto 0.02 X10*3/uL (0.00-0.03); Imm Gran Pct Auto 0.3 % (0.0-0.4); Lymphocytes Absolute Auto 2.9 X10*3/uL (1.2-4.9); Lymphocytes Percent Auto 36.7 % (20-40); Mean Corpuscular HGB Conc 32.6 g/dl (31.0-36.0); Mean Corpuscular Hemoglobin 29.6 pg (27.0-33.0); Mean Corpuscular Volume 90.6 fL (80.0-98.0); Mean Platelet Volume 9.1 fL (9.4-12.4); Monocytes Absolute Auto 0.7 X10*3/uL (0.1-1.2); Monocytes Percent Auto 8.6 % (2-11); Neutrophils Absolute Auto 3.8 x10*3/uL (2.0-8.3); Neutrophils Percent Auto 48.3 % (45-73); Platelet Count 297 X10*3/uL (160-400); Red Blood Count 4.77 X10*6/uL (4.60-5.80); Red Cell Distribution Width 14.6 % (11.0-16.0); White Blood Count 7.9 X10*3/uL (4.8-10.8)
[2023-04-21 08:09] LABS: Alanine Aminotransferase 15 U/L (0-40); Albumin Level 4.2 g/dL (3.5-5.0); Alkaline Phosphatase 81 U/L (39-117); Anion Gap 11 (12-20); Aspartate Amino Transferase 17 U/L (5-37); Bilirubin Total 0.3 mg/dL (0.0-1.0); Blood Urea Nitrogen 13 mg/dL (9-16); Carbon Dioxide 26 mmol/L (22-29); Chloride 105 mmol/L (96-108); Cholesterol 175 mg/dL (<200); Estimated Glomerular Filt Rate > 60; Glucose Fasting 109 mg/dL (60-99); HDL Cholesterol 61 mg/dL (>40); LDL Cholesterol Calculated 101 mg/dL (<100); Potassium 4.3 mmol/L (3.3-5.1); Sodium 138 mmol/L (135-145); Triglycerides 69 mg/dL (<150)
[2023-04-21 08:50] LABS: Appearance Urine Clear; Color Urine Yellow; Glucose Urine UA Negative (Negative); Leukocyte Esterase Urine Negative (Negative); Nitrite Urine Negative (Negative); PH 5.5 (5.0-9.0); Specific Gravity - Urine >= 1.030 (1.005-1.025); Urine Blood Negative (Negative); Urine Ketones Negative (Negative); Urine Protein Trace mg/dL (Neg-Trace)
[2023-04-21 08:54] LABS: Prostate Specific Antigen 0.41 ng/mL (<0.05-4.0); Vitamin B12 607 pg/mL (200-900)
== END 2023-04-21 06:53 | disposition home or self-care (01) ==
LOC: HO.LAB 06:52
PROVIDERS: PCP Internal Medicine; Visit Provider Internal Medicine
DX: Z12.5 Encounter for screening for malignant neoplasm of prostate (principal); I10 Essential (primary) hypertension; E78.00 Pure hypercholesterolemia, unspecified; N40.0 Benign prostatic hyperplasia without lower urinary tract symptoms; E53.8 Deficiency of other specified B group vitamins; Z72.0 Tobacco use
CPT/HCPCS: 36415; 80053; 80061; 81003; 82607; 84153; 85025

== ENCOUNTER 2023-09-14 11:11 | Outpatient (REF) | payer MEDICARE, OTHER, SELFPAY ==
[2023-09-14 13:14] LABS: Estimated Average Glucose 108 mg/dL; Hemoglobin A1c % 5.4 % (<6.0)
[2023-09-14 13:16] LABS: Anion Gap 11 (12-20); Blood Urea Nitrogen 11 mg/dL (9-16); Calcium 9.5 mg/dL (8.4-10.2); Carbon Dioxide 27 mmol/L (22-29); Chloride 104 mmol/L (96-108); Estimated Glomerular Filt Rate > 60; Glucose Random 106 mg/dL (60-115); Sodium 138 mmol/L (135-145)
== END 2023-09-14 11:12 | disposition home or self-care (01) ==
LOC: HO.10HDL 11:11
PROVIDERS: Visit Provider Internal Medicine
DX: I10 Essential (primary) hypertension (principal); R73.03 Prediabetes
CPT/HCPCS: 36415; 80048; 83036

== ENCOUNTER 2024-05-23 07:20 | Outpatient (REF) | payer MEDICARE, OTHER, SELFPAY ==
[2024-05-23 07:31] LABS: MANUAL DIFF FLAG NO
[2024-05-23 08:36] LABS: Basophils Percent Auto 0.4 % (0-2); Eosinophils Absolute Auto 0.4 X10*3/uL (0.0-0.4); Eosinophils Percent Auto 4.4 % (0-4); Hemoglobin 14.4 g/dl (14.0-18.0); Imm Gran Abs Auto 0.02 X10*3/uL (0.00-0.03); Imm Gran Pct Auto 0.2 % (0.0-0.4); Lymphocytes Absolute Auto 3.4 X10*3/uL (1.2-4.9); Lymphocytes Percent Auto 37.9 % (20-40); Mean Corpuscular HGB Conc 33.5 g/dl (31.0-36.0); Mean Corpuscular Hemoglobin 29.8 pg (27.0-33.0); Mean Platelet Volume 9.1 fL (9.4-12.4); Monocytes Absolute Auto 0.8 X10*3/uL (0.1-1.2); Neutrophils Absolute Auto 4.3 x10*3/uL (2.0-8.3); Neutrophils Percent Auto 48.1 % (45-73); Platelet Count 298 X10*3/uL (160-400); Red Blood Count 4.83 X10*6/uL (4.60-5.80); Red Cell Distribution Width 14.4 % (11.0-16.0); White Blood Count 8.9 X10*3/uL (4.8-10.8)
[2024-05-23 09:16] LABS: Alanine Aminotransferase 19 U/L (0-40); Albumin Level 4.2 g/dL (3.5-5.0); Alkaline Phosphatase 75 U/L (39-117); Anion Gap 14 (12-20); Aspartate Amino Transferase 18 U/L (5-37); Bilirubin Total 0.5 mg/dL (0.0-1.0); Blood Urea Nitrogen 16 mg/dL (9-16); Carbon Dioxide 23 mmol/L (22-29); Chloride 108 mmol/L (96-108); Cholesterol 174 mg/dL (<200); Estimated Glomerular Filt Rate > 60; Glucose Fasting 110 mg/dL (60-99); HDL Cholesterol 61 mg/dL (>40); LDL Cholesterol Calculated 95 mg/dL (<100); Potassium 3.7 mmol/L (3.3-5.1); Sodium 141 mmol/L (135-145); Triglycerides 90 mg/dL (<150)
[2024-05-23 09:41] LABS: Prostate Specific Antigen 0.39 ng/mL (<0.05-4.0)
== END 2024-05-23 07:21 | disposition home or self-care (01) ==
LOC: HO.LAB 07:20
PROVIDERS: PCP Internal Medicine; Visit Provider Internal Medicine
DX: I10 Essential (primary) hypertension (principal); E78.00 Pure hypercholesterolemia, unspecified; Z12.5 Encounter for screening for malignant neoplasm of prostate
CPT/HCPCS: 36415; 80053; 80061; 84153; 85025

== ENCOUNTER 2024-09-08 08:23 | Outpatient (REF) | payer MEDICARE, OTHER, SELFPAY ==
--- OUTSIDE RECORDS SUMMARY | 2024-09-08 08:43 | XMS_ITS | Patient Health Record ---
Author Organization [facility] Address [address] [place] [address] Care Team Providers Care Excavator Backhoe Operator Name Role Phone Fei Gonzalez MD Primary Care Provider Bhaskar Henderson Jr Unavailable Allergies No Known Allergies Reason For Referral No Information Medications Medication SIG (Take, Route, Frequency, Duration) Notes Start Date End Date Status Aspirin 81 81 MG 1 tablet Orally Once a day for 30 day(s) 3 times a week Active Lisinopril 10 MG 1 tablet Orally Once a day Active Simvastatin 40 MG 1 tablet in the even ing Orally Once a day Active Vitamin B-Complex Ac tive Immunizations Vaccine Route Administration Date Status Comme nts Influenza Unknown 04/14/2022 Administered Social History Tobacco Use: Social History Observation Description Date Details (start date - stop date) Current Smoker NA - NA Tobacco Use/Smoking Question Answer Notes Patient is a current smoker How often do you smoke cigarettes? every day How many cigarettes a day do you smoke? 6-10 How soon after you wake up do you smoke your fir st cigarette? 31-60 minutes Are you interested in quitting? Not ready to neyda t Alcohol Screen Question Answer Notes Did you have a drink contain ing alcohol in the past year? Yes How often did you have a dri nk containing alcohol in the past year? 2 to 4 times a month (2 points) How many drinks did you have on a typical day when you were drinking in the past year? 1 or 2 drinks (0 point) How often did you have 6 or more drinks on one occasion in the past year? Never (0 point) Points 2 Interpretation Negative Problems Problem Type SNOMED Code ICD Code Onset Dates Problem Status W/U Status Risk Notes Problem 566332091 Colon cancer screening (Z12.11) Active confirmed Problem 647431271 Personal history of colonic polyps (Z86.010) Active confirmed Problem 56500667 Encounter for other preprocedural examination (Z01.818) Active confirmed Problem 856688141 Long-term use of aspirin therapy (Z79.82) Active confirmed Plan Of Treatment Future Test Test Name Order Date COLONOSCOPY 03/12/2017 COLONOSCOPY 01/18/2023 Insurance Providers Payer Name Payer Address Payer Phone Subscriber Number Group Number Insured Name Patient Relationship to Insured Coverage Start Date Coverage End Date MEDICARE OF [place] [address] [place] [address] [id number] JONATHAN CHAVEZ Self - patient is the insured [facility] [address] [place] [phone] [id number] JONATHAN CHAVEZ Self - patient is the insured Medical (General) History Medical History History ICD Code Hypertension Hyperlipidemia Colon polyps, colonoscopy in 05/09, normal, five-year followup because of prior history Surgical History Surgery Date(Month/Year) Left total hip arthroplasty 2019
[2024-09-08 09:14] LABS: Estimated Average Glucose 105 mg/dL; Hemoglobin A1C 131.9844 umol/L; Hemoglobin A1c % 5.3 % (<6.0); Total Hemoglobin (HGBA1C) 3845.5063 umol/L
[2024-09-08 09:35] LABS: Anion Gap 12 (12-20); Blood Urea Nitrogen 16 mg/dL (9-16); Calcium 9.3 mg/dL (8.4-10.2); Carbon Dioxide 26 mmol/L (22-29); Chloride 106 mmol/L (96-108); Estimated Glomerular Filt Rate > 60; Glucose Random 92 mg/dL (60-115); Potassium 3.9 mmol/L (3.3-5.1); Sodium 140 mmol/L (135-145)
== END 2024-09-08 08:24 | disposition home or self-care (01) ==
LOC: HO.LAB 08:23
PROVIDERS: PCP Internal Medicine; Visit Provider Internal Medicine
DX: R73.03 Prediabetes (principal); I10 Essential (primary) hypertension
CPT/HCPCS: 36415; 80048; 83036

== ENCOUNTER 2024-09-18 08:57 | Outpatient (AMB) | payer MEDICARE, OTHER, SELFPAY ==
--- NOTE | 2024-09-18 08:58 | A.OFFPC_ITS ---
Vital Signs 09/18/24 09:13 Height 5 ft 10 in BP 122/80 Blood Pressure Location Lt brachial Position Sitting Pulse 85 Pulse Source Pulse Oximeter Temp 97.5 F Temp Source Axillary Pulse Oximetry (%) 98 Oxygen Delivery Method Room Air Intake Visit Reasons: Routine Electric Powerline Examiner Required: No Accompanied by: Self / Same As Patient Allergies No Known Allergies [No Known Allergies*] Allergy (Verified 09/18/24 09:16) Tobacco use date assessed: 09/18/24 Fall risk assessment: 1 Fall in past year Last assessed Fall Risk: 09/18/24 Dental Screening Dental Screen Date: 09/18/24 Did you have a dental visit in the last 12 months?: No Did you have a dental problem in the last 6 months where you did not have access to dental care?: No HPI Routine HPI Details 74-year-old male presents to the office to discuss his chronic medical conditions. Patient has high blood pressure and elevated cholesterol. He is reporting symptoms of allergy, including itchy eyes and frequent sneezing. Symptoms are well controlled with [id number] allergy medications. Uses a cane to ambulate after a left hip replacement. Able to function, including driving and do all activities of daily living. FORMERLY [facility] Medical History Closed displaced fracture of left femoral neck with malunion High cholesterol Hypertension Closed displaced fracture of left femoral neck with routine healing Surgical History History of colonoscopy (~02/26/23) History of tonsillectomy Status post hip surgery Family History Mother No problems noted. Father Lymph node cancer Social History Housing: House Are you a primary home day care provider to a significant other at home: No Do you presently have visiting nurse or other home services: No Alcohol intake: current Alcohol intake frequency: holidays/special occasions only Alcohol type: beer and hard liquor Comment: na Patient Tobacco Use Status: Current everyday Tobacco user Cigarette Packs Per Day: 0.25 Cigarettes Per Day: 5.0 Years Smoked: 50 e-Cigarette/Vaping Use: Currently Using Second Hand Smoke Exposure: No service: No Current occupational status: retired Current occupation: left handed Cognitive needs: No Hearing needs: No Vision needs: Yes (reading glasses) Questionnaire PHQ-9 Over the last 2 weeks, how often have you been bothered by any of the following problems? 1. Little interest or pleasure in doing things: not at all 2. Feeling down, depressed, or hopeless: not at all 3. Trouble falling or staying asleep, or sleeping too much: not at all 4. Feeling tired or having little energy: not at all 5. Poor appetite or overeating: not at all 6. Feeling bad about yourself - or that you are a failure or have let yourself or your family down: not at all 7. Trouble concentrating on things, such as reading the newspaper or watching television: not at all 8. Moving or speaking so slowly that other people could have noticed. Or the opposite - being so fidgety or restless that you have been moving around a lot more than usual: not at all 9. Thoughts that you would be better off or of hurting yourself in some way: not at all Total score: 0 Depression Screening Interpretation: Negative Depression Screening Done: Yes Source: Developed by Drs. Dyllan Rivera, Edita Sykes, Beni Castelan and colleagues, with an educational howard from [employer]. Thrive Questionnaire Date Thrive assessed: 09/18/24 I am a: Patient Within the past 12 months, did the food you bought not last and you didn't have the money to get more?: Never true Within the past 12 months, did you worry whether your food would run out before you got money to buy more?: Never true Do you have trouble paying for medicines?: No Do you have trouble getting transportation to medical appointments?: No Do you have trouble paying your heating and electricity bill?: No Do you have trouble taking care of your child, family member or friend?: No Do you have trouble with day-to-day activities such as bathing, preparing meals, shopping, managing finances, etc.?: No Are you currently unemployed and looking for a job?: No Are you interested in more education?: No Currently or been in a relationship where the following occur: No concerns reported THRIVE Score: 0 AUDIT C Alcohol Use Questionnaire (AUDIT-C) 1. How often do you have a drink containing alcohol?: Monthly or less 2. How many drinks containing alcohol do you have on a typical day when you are drinking?: 1 or 2 3. How often do you have six or more drinks on one occasion?: Less than monthly Total Score: 2 RAYSHAWN-7 AMB Questionnaire RAYSHAWN-7 Date RAYSHAWN - 7 assessed: 09/18/24 Feeling nervous, anxious, or on edge: 0 = Not at all Not being able to stop or control worryin = Not at all Worrying too much about different things: 0 = Not at all Trouble relaxin = Not at all Being so restless that it is hard to sit still: 0 = Not at all Becoming easily annoyed or irritable: 0 = Not at all Feeling afraid as if something awful might happen: 0 = Not at all Total RAYSHAWN-7 score (0-4 normal; 5-9 mild; 10-14 moderate; 15-21 severe): 0 Source: Developed by Drs. Dyllan Rivera, Edita Sykes, Beni Castelan and colleagues, with an educational howard from [employer]. Physical exam (Primary Care) Vital Signs: Last Vital Signs Temp 97.5 F 09/18/24 09:13 Pulse 85 09/18/24 09:13 BP 122/80 09/18/24 09:13 Pulse Ox 98 09/18/24 09:13 Oxygen Delivery Method Room Air 09/18/24 09:13 Care Plan Goal for BP management: Blood pressure is in range. Tobacco/Smoking Status: Tobacco use Status Tobacco use date assessed 09/18/24 09/18/24 09:21 Patient Tobacco Use Status Current everyday Tobacco 09/18/24 09:21 e-Cigarette/Vaping Use Currently Using 09/18/24 09:21 PHQ-9: PHQ-9 Score PHQ-9: Total score 0 09/18/24 09:21 Depression Screening Interpretation: Negative Thrive Assessment: Date of Thrive Assessment Date Thrive assessed 09/18/24 09/18/24 09:21 Currently or been in a relationship where the following occur: No concerns reported Const General: cooperative and healthy appearing Nutritional Appearance: well nourished Orientation/consciousness: patient oriented x3 Limitations: no limitations HENMT Head: Yes normal to inspection Eyes General: appearance normal, both eyes and all related structures Neck Neck: Yes normal visual inspection Chest Chest palpation & inspection: normal palpation of entire chest wall Resp Effort & Inspection: normal respiratory effort Neuro General: patient oriented x3 Coding Level of Care Code New Pt Level 4 (19123) Complex EM visit Add On G2211 Diagnoses Hypertension I10 High cholesterol E78.00 Assessment & Plan Assessment & Plan (1) Hypertension: Code(s): I10 - Essential (primary) hypertension Category: Medical Plan: Blood pressure is in range. Continue medications at same dosage. (2) High cholesterol: Code(s): E78.00 - Pure hypercholesterolemia, unspecified Category: Medical Plan: Blood work is in range. Continue statins at same dosage. Orders: Orders Complete Blood Count no Diff 03/14/25 E78.00 - Pure hypercholesterolemia, unspecified, I10 - Essential (primary) hypertension UA and rflx microscopic 03/14/25 E78.00 - Pure hypercholesterolemia, unspecified, I10 - Essential (primary) hypertension Basic Metabolic Panel 03/14/25 E78.00 - Pure hypercholesterolemia, unspecified, I10 - Essential (primary) hypertension Liver Panel 03/14/25 E78.00 - Pure hypercholesterolemia, unspecified, I10 - Essential (primary) hypertension Thyroid Stimulating Hormone 03/14/25 E78.00 - Pure hypercholesterolemia, unspecified, I10 - Essential (primary) hypertension Medications: New simvastatin 40 mg PO DAILY 90 tabs 1RF Changed From lisinopril 1 tab PO DAILY To lisinopril 10 mg PO DAILY 90 tabs 1RF
[2024-09-18 09:13] VITALS: BP 122/80; PULSE 85; TEMP 36.4; O2SAT 98
== END 2024-09-18 09:38 | disposition home or self-care (01) ==
LOC: HO.HMCHD 08:57
PROVIDERS: PCP Internal Medicine; Visit Provider Internal Medicine
DX: I10 Essential (primary) hypertension (principal); E78.00 Pure hypercholesterolemia, unspecified

== ENCOUNTER → 2024-09-18 08:57 | Outpatient (BNVA) | payer MEDICARE, OTHER, SELFPAY | PROVIDERS: PCP Internal Medicine; Visit Provider Internal Medicine | DX: I10 Essential (primary) hypertension (principal); E78.00 Pure hypercholesterolemia, unspecified | CPT/HCPCS: 99202 ==

== ENCOUNTER 2025-03-09 08:52 | Outpatient (REF) | payer MEDICARE, OTHER, SELFPAY ==
--- OUTSIDE RECORDS SUMMARY | 2025-03-09 09:26 | XMS_ITS | Patient Health Record ---
Author Organization [facility] Address [address] [place] [address] Care Team Providers Care Registration Scheduling Specialist Name Role Phone Lisa (RETIRED) Fei ROJO Primary Care Provide r Bhaskar Parnell Jr Unavailable Allergies No Known Allergies Reason For Referral No Information Medications Medication SIG (Take, Route, Frequency, Duration) Notes Start Date End Date Status Aspirin 81 81 MG 1 tablet Orally Once a day; Duration: 30 day(s) 3 times a week Active [...] Problem Status W/U Status Risk Notes Problem Colon cancer screening (536867925) Colon cancer screening (Z12.11) Active confirmed Problem History of polyp of colon (situation) (209547557) Personal history of colonic polyps (Z86.010) Active confirmed Problem Pre-procedure evaluation check (727343967) Encounter for other preprocedural examination (Z01.818) Active confirmed Problem Long-term current use of antiplatelet drug (932121275415641 ) Long-term use of aspirin therapy (Z79.82) Active confirmed Plan Of Treatment Future Test Test Name Order Date COLONOSCOPY 03/12/2017 COLONOSCOPY 01/18/2023 Insurance Providers Payer Name Payer Address Payer Phone Subscriber Number Group Number Insured Name Patient Relationship to Insured Coverage Start Date Coverage End Date MEDICARE OF [place] [address] [place] [address] [id number] JONATHAN CHAVEZ Self - patient is the insured [facility] [address] [place] [phone] [id number] JONATHAN CHAVEZ Self - patient is the insured Medical (General) History Medical History History ICD Code Hypertension Hyperlipidemia Colon polyps, colonoscopy in 05/09, normal, five-year followup because of prior history Surgical History Surgery Date(Month/Year) Left total hip arthroplasty 2019
[2025-03-09 10:09] LABS: Hematocrit 43.6 % (42.0-52.0); Hemoglobin 14.4 g/dl (14.0-18.0); Mean Corpuscular HGB Conc 33.0 g/dl (31.0-36.0); Mean Corpuscular Hemoglobin 30.2 pg (27.0-33.0); Mean Corpuscular Volume 91.4 fL (80.0-98.0); NRBC Abs Auto 0.000 X10*3/uL (0.0-0.012); NRBC Pct Auto 0.0 /100WBC (0.0-0.2); Platelet Count 260 X10*3/uL (160-400); Red Blood Count 4.77 X10*6/uL (4.60-5.80); White Blood Count 8.5 X10*3/uL (4.8-10.8)
[2025-03-09 10:13] LABS: Appearance Urine Clear; Glucose Urine UA Negative (Negative); PH 5.5 (5.0-9.0); Specific Gravity - Urine 1.020 (1.005-1.025); UMIC TRIGGER UA YES
[2025-03-09 13:06] LABS: Thyroid Stimulating Hormone 0.82 uIU/mL (0.32-4.0)
[2025-03-09 13:07] LABS: Anion Gap 13 (12-20)
[2025-03-09 13:12] LABS: Alanine Aminotransferase 15 U/L (0-40); Albumin Level 4.3 g/dL (3.5-5.0); Alkaline Phosphatase 76 U/L (39-117); Aspartate Amino Transferase 20 U/L (5-37); Blood Urea Nitrogen 13 mg/dL (9-16); Calcium 8.8 mg/dL (8.4-10.2); Carbon Dioxide 23 mmol/L (22-29); Chloride 109 mmol/L (96-108); Estimated Glomerular Filt Rate > 60; Potassium 4.2 mmol/L (3.3-5.1); Sodium 141 mmol/L (135-145); Total Protein 6.8 g/dL (6.5-8.0)
== END 2025-03-09 08:53 | disposition home or self-care (01) ==
LOC: HO.HMGCLDS 08:52
PROVIDERS: PCP Physician Assistant Medical; Visit Provider Internal Medicine
DX: I10 Essential (primary) hypertension (principal); E78.00 Pure hypercholesterolemia, unspecified
CPT/HCPCS: 36415; 80048; 80076; 81001; 84443; 85027